=== PATIENT | female | born 1980 | race Caucasian/White ===

== ENCOUNTER → 2021-11-03 14:39 | Outpatient (BNVA) | payer MEDICAID, SELFPAY | PROVIDERS: PCP Internal Medicine; Visit Provider Physician Assistant Surgical | DX: E66.01 Morbid (severe) obesity due to excess calories (principal); Z11.0 Encounter for screening for intestinal infectious diseases; Z68.42 Body mass index [BMI] 45.0-49.9, adult | CPT/HCPCS: 83013; 99202; 99211 ==

== ENCOUNTER 2021-11-03 16:08 | Outpatient (REF) | payer MEDICAID, SELFPAY ==
[2021-11-04 11:36] LABS: H Pylori Breath Test Negative (Negative)
== END 2021-11-03 16:09 | disposition home or self-care (01) ==
LOC: HO.LNP 16:08
PROVIDERS: Visit Provider Physician Assistant Surgical
DX: E66.01 Morbid (severe) obesity due to excess calories (principal)
CPT/HCPCS: 83013

== ENCOUNTER 2021-11-06 06:07 | Outpatient (REF) | payer MEDICAID, SELFPAY ==
[2021-11-06 06:32] LABS: MANUAL DIFF FLAG NO
[2021-11-06 08:04] LABS: Basophils Percent Auto 0.2 % (0-2); Eosinophils Absolute Auto 0.1 X10*3/uL (0.0-0.4); Eosinophils Percent Auto 1.3 % (0-4); Hematocrit 42.8 % (37.0-47.0); Hemoglobin 14.9 g/dl (12.0-16.0); Imm Gran Abs Auto 0.03 X10*3/uL (0.00-0.03); Imm Gran Pct Auto 0.4 % (0.0-0.4); Lymphocytes Absolute Auto 2.6 X10*3/uL (1.2-4.9); Lymphocytes Percent Auto 29.8 % (20-40); Mean Corpuscular HGB Conc 34.8 g/dl (31.0-35.0); Mean Corpuscular Hemoglobin 29.7 pg (27.0-33.0); Mean Corpuscular Volume 85.4 fL (80.0-98.0); Mean Platelet Volume 11.6 fL (9.4-12.3); Monocytes Absolute Auto 0.6 X10*3/uL (0.1-1.2); Monocytes Percent Auto 6.4 % (2-11); Neutrophils Absolute Auto 5.3 x10*3/uL (2.0-8.3); Neutrophils Percent Auto 61.9 % (45-73); Platelet Count 203 X10*3/uL (160-400); Red Blood Count 5.01 X10*6/uL (4.20-5.50); Red Cell Distribution Width 12.6 % (11.0-16.0); White Blood Count 8.6 X10*3/uL (4.8-10.8)
[2021-11-06 08:12] LABS: Estimated Average Glucose 91 mg/dL; Hemoglobin A1c % 4.8 %
[2021-11-06 08:47] LABS: Alanine Aminotransferase 16 U/L (0-31); Albumin Level 4.2 g/dL (3.5-5.0); Alkaline Phosphatase 61 U/L (39-117); Anion Gap 12 (12-20); Aspartate Amino Transferase 16 U/L (5-31); Bilirubin Total 0.7 mg/dL (0.0-1.0); Blood Urea Nitrogen 20 mg/dL (9-16); C Reactive Protein 0.45 mg/dL (< or = 0.50); Calcium 9.2 mg/dL (8.4-10.2); Carbon Dioxide 25 mmol/L (22-29); Chloride 103 mmol/L (96-108); Cholesterol 182 mg/dL; Estimated Glomerular Filt Rate > 60; Glucose Random 94 mg/dL (60-115); HDL Cholesterol 32 mg/dL; Iron 57 mcg/dL (30-160); LDL Cholesterol Calculated 121 mg/dl; Percent Iron Saturation 18 % (15-50); Potassium 3.9 mmol/L (3.3-5.1); Sodium 136 mmol/L (135-145); Total Iron Binding Capacity 323 mcg/dL (228-428); Total Protein 7.3 g/dL (6.5-8.0); Triglycerides 149 mg/dL; Unsaturated Iron Binding 266 ug/dL
[2021-11-06 08:53] LABS: Ferritin 128 ng/mL (10-250); TSH reflex Free T4 1.37 uIU/mL (0.32-4.0); Vitamin D 25-OH Total 21.2 ng/mL (>30)
[2021-11-06 09:24] LABS: Insulin 12 uU/mL (2-29)
[2021-11-06 11:18] LABS: Folate 12.9 ng/mL (> or = 4.0); Vitamin B12 292 pg/mL (200-900)
[2021-11-07 12:11] LABS: Calcium (PTHI) 9.4 mg/dL (8.6-10.2); PTHI 70 pg/mL (16-77)
[2021-11-10 23:16] LABS: Zinc 85 mcg/dL (60-130)
[2021-11-11 15:56] LABS: Vitamin B1 8 nmol/L (8-30)
[2021-11-11 17:02] LABS: Vitamin A 42 mcg/dL (38-98)
== END 2021-11-06 06:08 | disposition home or self-care (01) ==
LOC: HO.LAB 06:07
PROVIDERS: PCP Internal Medicine; Visit Provider Physician Assistant Surgical
DX: E66.01 Morbid (severe) obesity due to excess calories (principal)
CPT/HCPCS: 36415; 80053; 80061; 82306; 82607; 82728; 82746; 83036; 83525; 83540; 83970; 84425; 84443; 84590; 84630; 85025; 86140

== ENCOUNTER 2021-11-17 06:22 | Outpatient (REF) | payer MEDICAID, SELFPAY ==
--- NOTE | ~2021-11-17 | XR_ITS ---
EXAMINATION: XR CHEST CLINICAL INFORMATION: Morbid obesity due to excess calories COMPARISON: None TECHNIQUE: 2 views of the chest were obtained. FINDINGS: No significant abnormality is noted involving the heart, lungs, mediastinum, bony thorax or soft tissues. XR/XR chest 2V IMPRESSION: No acute pulmonary process. Essentially unremarkable examination.
--- NOTE | 2021-11-17 06:35 | ECG_ITS ---
Test Reason : e66.01 Blood Pressure : / mmHG Vent. Rate : 076 BPM Atrial Rate : 076 BPM P-R Int : 138 ms QRS Dur : 088 ms QT Int : 360 ms P-R-T Axes : 057 079 040 degrees QTc Int : 405 ms Normal sinus rhythm Normal ECG No previous ECGs available Referred By: Elijah Gomez Electronically Signed By:Raman Norman
== END 2021-11-17 06:23 | disposition home or self-care (01) ==
LOC: HO.XRAY 06:22
PROVIDERS: PCP Internal Medicine; Visit Provider Physician Assistant Surgical
DX: E66.01 Morbid (severe) obesity due to excess calories (principal)
CPT/HCPCS: 71046; 93005

== ENCOUNTER → 2021-12-18 15:00 | Outpatient (BNVA) | payer OTHER, SELFPAY | PROVIDERS: Referring Provider Physician Assistant Surgical; Visit Provider Counselor Mental Health | DX: F32.5 Major depressive disorder, single episode, in full remission (principal); E66.01 Morbid (severe) obesity due to excess calories | CPT/HCPCS: 90791 ==

== ENCOUNTER → 2021-12-26 09:21 | Outpatient (BNVA) | payer MEDICAID, SELFPAY | PROVIDERS: PCP Internal Medicine; Referring Provider Physician Assistant Surgical; Visit Provider Dietitian, Registered | DX: E66.01 Morbid (severe) obesity due to excess calories (principal) | CPT/HCPCS: 97803 ==

== ENCOUNTER 2022-01-03 07:42 | Outpatient (REF) | payer MEDICAID, SELFPAY ==
--- NOTE | ~2022-01-03 | US_ITS ---
EXAMINATION: US COMPLETE ABDOMEN WITH LIVER ELASTOGRAPHY CLINICAL INFORMATION: Obesity COMPARISON: None. TECHNIQUE: Real-time imaging of the abdominal viscera. Noninvasive ultrasound liver fibrosis assessment is performed using Theresa ElastPQ point quantification shear wave elastography (2D-SWE) with a C5-2 MHz transducer. Multiple elastography samples are obtained. FINDINGS: PANCREAS: Normal. ABDOMINAL AORTA: The proximal, middle, and distal aortic segments are normal in caliber. INFERIOR VENA CAVA: Visualized portions are normal. LIVER: Normal. The liver demonstrates normal size, contour and echogenicity. No focal lesion or intrahepatic biliary duct dilatation. The right lobe measures 18 cm in length. The left lobe measures 7 cm in length. Portal flow is normal/hepatopedal Shear wave liver elastography median stiffness is 1.4 m/s (reference: normal median stiffness is 1.3 m/s or less). IQR/median stiffness to assess sampling precision is 0.2 (reference: good quality data set is IQR/median stiffness of 0.15 or less). GALLBLADDER: Normal. The gallbladder is physiologically distended without evidence of stones, sludge, polyps, wall thickening or pericholecystic fluid. COMMON BILE DUCT: Normal in caliber measuring 0.3 cm in diameter. RIGHT KIDNEY: Normal. No hydronephrosis. No renal calculi or focal parenchymal lesions. The kidney measures 12 cm in maximum dimension. LEFT KIDNEY: Normal. No hydronephrosis. No renal calculi or focal parenchymal lesions. The kidney measures 12 cm in maximum dimension. SPLEEN: Normal. The spleen measures 14 cm in maximum dimension. FREE FLUID: None. US/US abdomen comp w elastography IMPRESSION: 1. Impression: Slightly enlarged spleen. 2. Liver elastography: Limited due to sampling error. REFERENCE: Society of Radiologists in Ultrasound Liver Stiffness Thresholds (2020): LIVER STIFFNESS THRESHOLDS: *Liver Stiffness equal or less than 1.3 m/s: High probability of being normal. *Liver Stiffness less than 1.7 m/s: In the absence of other known clinical signs, rules out compensated advanced chronic liver disease. *Liver Stiffness 1.7-2.1 m/s: Suggestive of compensated advanced chronic liver disease but need further test for confirmation. *Liver Stiffness over 2.1 m/s: Rules in compensated advanced chronic liver disease. *Liver Stiffness over 2.4 m/s: Suggestive of clinically significant portal hypertension. QUALITY OF DATA SET: *IQR/Median value equal or less than 0.15 implies a quality data set. *IQR/Median value over 0.15 implies a poor quality data set. SIGNIFICANT CHANGE FROM PRIOR EXAM: Significant change if liver stiffness measurement is 10% or greater from prior exam. OTHER CONSIDERATIONS: The stage of liver fibrosis may be overestimated in the setting of acute hepatitis, liver inflammation, elevated liver function tests, hepatic vascular congestion, obstructive cholestasis, non-fasting state, and infiltrative diseases such as amyloidosis and lymphoma. In some patients with NAFLD, the liver stiffness thresholds for compensated advanced chronic liver disease may be lower. In causes other than viral hepatitis and NAFLD, liver stiffness thresholds are not well established.
--- NOTE | ~2022-01-03 | FL_ITS ---
EXAMINATION: XR FLUOROSCOPY UPPER GI WITH AIR CLINICAL INFORMATION: Morbid to severe obesity due to excess calories. COMPARISON: None TECHNIQUE: Routine upper GI air-contrast study was performed. FINDINGS: Following oral administration of thick barium and effervescent granules, there is normal propagation of bolus from the oral cavity through the pharynx, esophagus into stomach without any evidence of obstruction, narrowing or stricture. On placing patient supine and prone lying, there is a large gastroesophageal reflux into the upper esophagus with a small sliding hiatal hernia. There is flocculation of barium throughout the stomach suggestive of gastric hyperacidity. Visualized duodenal bulb and the C-loop is normal in course and caliber. No mucosal abnormality is seen involving the stomach or the duodenum. FLUOROSCOPY TIME: 2.3 minutes DOSE AREA PRODUCT: 178 uGy-m2 (microgray-meter squared) FL/FL upper GI w air IMPRESSION: Large gastroesophageal reflux with a small sliding hiatal hernia. Suspect gastric hyperacidity but no gastric erosion or ulceration suspected.
== END 2022-01-03 07:43 | disposition home or self-care (01) ==
LOC: HO.US 07:42
PROVIDERS: Visit Provider Physician Assistant Surgical
DX: E66.01 Morbid (severe) obesity due to excess calories (principal)
CPT/HCPCS: 74246; 76705; 76981

== ENCOUNTER 2022-03-01 06:16 | Inpatient (IN) | payer MEDICAID, SELFPAY ==
[2022-02-19 09:21] VITALS: BMI 41.8
[2022-02-20 06:06] LABS: MANUAL DIFF FLAG NO
[2022-02-20 07:27] LABS: Basophils Percent Auto 0.6 % (0-2); Eosinophils Absolute Auto 0.1 X10*3/uL (0.0-0.4); Eosinophils Percent Auto 1.3 % (0-4); Hematocrit 41.1 % (37.0-47.0); Imm Gran Abs Auto 0.03 X10*3/uL (0.00-0.03); Imm Gran Pct Auto 0.4 % (0.0-0.4); Lymphocytes Absolute Auto 2.3 X10*3/uL (1.2-4.9); Lymphocytes Percent Auto 32.9 % (20-40); Mean Corpuscular HGB Conc 34.1 g/dl (31.0-35.0); Mean Corpuscular Hemoglobin 29.2 pg (27.0-33.0); Mean Corpuscular Volume 85.6 fL (80.0-98.0); Mean Platelet Volume 11.3 fL (9.4-12.3); Monocytes Absolute Auto 0.4 X10*3/uL (0.1-1.2); Neutrophils Percent Auto 58.8 % (45-73); Platelet Count 170 X10*3/uL (160-400); Red Cell Distribution Width 13.1 % (11.0-16.0); White Blood Count 6.8 X10*3/uL (4.8-10.8)
[2022-02-20 07:42] LABS: INTERNATIONAL NORM RATIO 1.1 (0.9-1.1)
[2022-02-20 07:45] LABS: Estimated Average Glucose 91 mg/dL; Hemoglobin A1c % 4.8 %; Partial Thromboplastin Time 35.5 SEC (26.0-36.4)
[2022-02-20 07:50] LABS: Alanine Aminotransferase 11 U/L (0-31); Albumin Level 3.8 g/dL (3.5-5.0); Alkaline Phosphatase 46 U/L (39-117); Anion Gap 13 (12-20); Aspartate Amino Transferase 13 U/L (5-31); Bilirubin Total 0.8 mg/dL (0.0-1.0); Blood Urea Nitrogen 13 mg/dL (9-16); C Reactive Protein 0.35 mg/dL (< or = 0.50); Carbon Dioxide 24 mmol/L (22-29); Chloride 106 mmol/L (96-108); Cholesterol 160 mg/dL; Creatinine Clr Calc Pharmacy 126.8; Estimated Glomerular Filt Rate > 60; Glucose Random 85 mg/dL (60-115); HDL Cholesterol 31 mg/dL; LDL Cholesterol Calculated 116 mg/dl; Potassium 4.1 mmol/L (3.3-5.1); Sodium 139 mmol/L (135-145); Total Protein 6.6 g/dL (6.5-8.0); Triglycerides 68 mg/dL
[2022-02-20 08:10] LABS: Insulin 5 uU/mL (2-29); TSH reflex Free T4 0.41 uIU/mL (0.32-4.0)
--- NOTE | 2022-02-26 17:44 | P.HPSUR_ITS ---
Pre-Procedural Eval Section A Date of Service: 02/26/22 The patient is an INPATIENT: Yes The History & Physical has been completed within 30 days and I have reviewed it.: Yes Section B Chief Complaint: Morbid (severe) obesity due to excess calories Relevant Family History (Specify if Yes): No Relevant Social History: None Present Medications: None Medical History: No relevant PMH History of Previous Operations: No relevant previous surgery Allergies: Allergies Allergy/AdvReac Type Severity Reaction Status Date / Time No Known Allergies Allergy Verified 02/16/22 11:46 Review of Systems Sugical H&P ROS: Negative: Constitution, Cardiovascular, Respiratory, Neurological, Psychiatric, Hem-Onc, Allergic/Immunologic, Gastrointestinal, Genitourinary, Musculoskeletal, Integumentary, Endocrine and Eyes/Ears/No se/Throat Exam Surgical H&P Exam: Normal: HEENT, Normal: Heart, Normal: Lungs, Normal: Extremities, Normal: Abdomen, Normal: Skin and Normal: Neurological Plan Diagnosis/Plan: Unchanged I have reviewed the history and physical and performed a pertinent physical examination on my patient. No changes have occurred unless specified.
--- NOTE | 2022-02-28 10:19 | P.CONAN_ITS ---
Documented by User: Micki Lemus NP 02/28/22 10:20 HPI - Anesthesia Eval Consult details Narrative: 41yo F for Gastrectomy Sleeve,EGD,possible diaphragmatic hernia,possible ventral hernia,possible open PMFSH Active Problems Active Problems: All Active Problems (Updated 02/19/22 @ 09:20 by Desiree De Souza, CHRISTINE) Morbid obesity (Acute) Hypothyroid (Acute) Major depressive disorder in full remission (Acute) Vitamin B12 deficiency (Acute) Past Medical History Medical History Hiatal hernia History of COVID-19 History of depression Hypothyroid Mild acid reflux PONV (postoperative nausea and vomiting) Family History Family History Mother No problems noted. Father Colon cancer Sister No problems noted. Sister No problems noted. Sister No problems noted. Brother No problems noted. Brother No problems noted. Brother No problems noted. Son No problems noted. Son No problems noted. Son No problems noted. Sister No problems noted. Sister No problems noted. Surgical History Surgical History Hx of arthroscopy of right knee Hx of tonsillectomy Hx of dilation and curettage Hx of oral surgery Hx of hysterectomy Hx of colonoscopy History of Problems with Anesthesia: Yes (PONV) Social History Are you a primary manager respiratory care to a significant other at home: No Do you presently have visiting nurse or other home services: No Alcohol intake: never Patient Tobacco Use Status: Never used Tobacco Meds Allergies Allergy/AdvReac Type Severity Reaction Status Date / Time No Known Allergies Allergy Verified 12/10/22 09:02 Home Medications Medication Instructions Recorded Confirmed Last Taken Type womens one a day MVI PO 12/10/22 02/28/23 Unknown History Exam Exam Date and Time: February 28, 2022 1019 Height,Weight and Vital Signs: Height 5 ft 4 in Weight 110.677 kg Pertinent Lab Results Pertinent Lab Results: Laboratory Tests 02/20/22 02/20/22 02/20/22 06:04 06:04 06:04 WBC 6.8 RBC 4.80 Hgb 14.0 Hct 41.1 MCV 85.6 MCH 29.2 MCHC 34.1 RDW 13.1 Plt Count 170 MPV 11.3 Immature Gran % (Auto) 0.4 Neut % (Auto) 58.8 Lymph % (Auto) 32.9 [place] % (Auto) 6.0 Eos % (Auto) 1.3 Baso % (Auto) 0.6 Lymph # (Auto) 2.3 [place] # (Auto) 0.4 Eos # (Auto) 0.1 Baso # (Auto) 0.0 Abs Immat Gran (auto) 0.03 Absolute Neuts (auto) 4.0 Absolute Nucleated RBC 0.000 Nucleated RBC % (auto) 0.0 PT 13.0 INR 1.1 APTT 35.5 Sodium 139 Potassium 4.1 Chloride 106 Carbon Dioxide 24 Anion Gap 13 BUN 13 Creatinine 0.71 Estim Creat Clear Calc 126.8 Estimated GFR > 60 Random Glucose 85 Estimat Average Glucose Hemoglobin A1c % Insulin Level 5 Calcium 9.0 Total Bilirubin 0.8 AST 13 ALT 11 Alkaline Phosphatase 46 D C-Reactive Protein 0.35 Total Protein 6.6 Albumin 3.8 Triglycerides 68 Cholesterol 160 LDL Cholesterol, Calc 116 HDL Cholesterol 31 TSH 0.41 Blood Type Antibody Screen 02/20/22 02/20/22 06:04 06:04 WBC RBC Hgb Hct MCV MCH MCHC RDW Plt Count MPV Immature Gran % (Auto) Neut % (Auto) Lymph % (Auto) [place] % (Auto) Eos % (Auto) Baso % (Auto) Lymph # (Auto) [place] # (Auto) Eos # (Auto) Baso # (Auto) Abs Immat Gran (auto) Absolute Neuts (auto) Absolute Nucleated RBC Nucleated RBC % (auto) PT INR APTT Sodium Potassium Chloride Carbon Dioxide Anion Gap BUN Creatinine Estim Creat Clear Calc Estimated GFR Random Glucose Estimat Average Glucose 91 Hemoglobin A1c % 4.8 Insulin Level Calcium Total Bilirubin AST ALT Alkaline Phosphatase C-Reactive Protein Total Protein Albumin Triglycerides Cholesterol LDL Cholesterol, Calc HDL Cholesterol TSH Blood Type A Negative Antibody Screen NEGATIVE Narrative Narrative: EKG 10/2021 Vent. Rate : 076 BPM ? ? Atrial Rate : 076 BPM ?? P-R Int : 138 ms? QRS Dur : 088 ms ? ? QT Int : 360 ms ? ? ? P-R-T Axes : 057 079 040 degrees ?? QTc Int : 405 ms ? Normal sinus rhythm Normal ECG No previous ECGs available Assessment and Plan Assessment Anesthesia Assessment: Chart Reviewed Final Anesthetic Review History of Problems with Anesthesia: Yes (PONV) Documented by User: John Junior MD 03/21/23 23:34 [facility] Past Medical History Medical History Hiatal hernia History of COVID-19 History of depression Hypothyroid Mild acid reflux PONV (postoperative nausea and vomiting) Functional capacity: independent ambulation Family History Family History Mother No problems noted. Father Colon cancer Sister No problems noted. Sister No problems noted. Sister No problems noted. Brother No problems noted. Brother No problems noted. Brother No problems noted. Son No problems noted. Son No problems noted. Son No problems noted. Sister No problems noted. Sister No problems noted. Family history of problems with anesthesia: No Surgical History Surgical History Hx of arthroscopy of right knee Hx of tonsillectomy Hx of dilation and curettage Hx of oral surgery Hx of hysterectomy Hx of colonoscopy Social History Are you a primary manager respiratory care to a significant other at home: No Do you presently have visiting nurse or other home services: No Alcohol intake: never Patient Tobacco Use Status: Never used Tobacco Meds Allergies Allergy/AdvReac Type Severity Reaction Status Date / Time No Known Allergies Allergy Verified 12/10/22 09:02 Home Medications Medication Instructions Recorded Confirmed Last Taken Type womens one a day MVI PO 12/10/22 02/28/23 Unknown History Exam Airway Mallampati Class: III Loose/Missing/Broken Teeth: Yes (Fillings ) Assessment and Plan Assessment Anesthesia Assessment: Anesthesia Plan Discussed Final Anesthetic Review Family History of Problems with Anesthesia: No NPO: Yes ASA Class: III Final Preanesthetic Review: Meds/Allgs Chart Reviewed, Consent Obtained/Reviewed and Anes Risks/Benef Reviewed Patient Risk: Intermediate Procedure Risk: Intermediate Anesthetic Plan Anesthetic Plan: GA and Agree w/ Assess. and Plan Disposition: Standard PACU
[2022-02-28 12:32] LABS: COVID-19 Test Negative (Negative)
[2022-03-01] VITALS (10 sets, daily range): BP systolic 120–137; BP diastolic 64–81; PULSE 59–87; RESP 15–18; TEMP 36.1–36.9; O2SAT 96–99
[2022-03-01] MEDS: Lactated Ringers 1,000 ML 999 ML IV (06:40)
[2022-03-01] MEDS: Scopolamine 1.5 MG PATCH.TD.3 TRANSDERMA (06:40)
--- NOTE | 2022-03-01 07:30 | PC.NURSE ---
Verified with Dr. Bolden to disregard active surgical order for Lap Kathie. This order entered by him in error.
--- NOTE | 2022-03-01 07:49 | P.BOP_ITS ---
Brief Operative Note Date of Service: 03/01/22 Pre-op diagnosis: Morbid obesity and comorbidities (see below) Post-op diagnosis: same (& congenital adhesions) Procedure: INITIAL PATIENT BMI ON PRESENTATION AT OUR OFFICE: 48.5 kg/m2 LAST BMI BEFORE SURGERY: 42.6 kg/m2 COMORBIDITIES: hypothyroidism, DJD, GERD, diaphragmatic hernia ?The patient presented to the Weight Management Program with significant obesity that was negatively impacting the patient's comorbidities as listed above.? The program is a phased program with a special focus on preoperative medical weight management to promote substantial weight loss and prepare the patients for the second phase of the program: bariatric surgery. The patient participated in an intensive weekly lifestyle ?intervention and exercise program during which the patient ?has lost between the initial office visit and the last preoperative visit 38.4lbs, or 13.6% of initial actual body weight. It was deemed appropriate for the patient to now have bariatric surgery. In light of the current Covid-19 pandemic and the well documented strong association of obesity and increased risk of worse outcomes if infected with Covid-19 (REFERENCES: https://pubmed.ncbi.nlm.nih.gov/44184715/ ,? https://pubmed.ncbi.nlm.nih.gov/84204775/ ), any delay in undergoing bariatric surgery may lead to the patient's worsening health condition and increased?risk of more severe Covid-19 disease if infected. In addition a recent?study from [facility] published in [facility] [employer] on 04/24/2021 ([email or web address]/C:/[email or web address]) found that, among patients with obesity, substantial weight loss achieved with surgery was associated with improved outcomes of COVID-19 infection. The findings suggest that obesity can be a modifiable risk factor for the severity of COVID-19 infection. In addition, the patient met the BMI-criteria for bariatric surgery based on the BMI on initial presentation. The patient should not be penalized for achieving such weight loss because ?it is not sustainable long-term without surgical intervention and it was achieved in preparation for bariatric surgery ?under my direction and based on my published research ([email or web address]).[email or web address] and? https://www.soard.org/article/[email or web address](39)84451-X/pdf ) ?that a 10% preope rative weight loss improves long-term weight loss after surgery and reduces perioperative complications.? Insurance carriers such as [facility] have endorsed my recommendations ?and have included in their policies criteria to include a 10% preoperative weight loss requirement. PROCEDURE: Esophago-gastroscopy, laparoscopic repair of incarcerated diaphragmatic hernia, laparoscopic lysis of adhesions, laparoscopic sleeve gastrectomy and laparoscopic gastropexy INDICATIONS: This is a 41 year-old female who was electively scheduled for laparoscopic, possibly open sleeve gastrectomy. The risks and complications of the procedure were discussed with the patient in advance, particularly the possibility of ; pulmonary embolism; staple line leak; bleeding; GERD; cardiac, pulmonary, or renal complications; as well as long-term problems such as insufficient weight loss, vitamin deficiency, strictures, or ulcers. The patient understood all the risks, and was in agreement to proceed with surgery. DESCRIPTION OF PROCEDURE: After informed consent was obtained from the patient, the patient was given preoperative antibiotics, and was transferred to the operating room. After successful induction of general anesthesia, pneumatic compression devices were placed on both lower extremities. An upper endoscopy was performed next. The oropharynx and esophagus appeared to be within normal limits. There was a diaphragmatic hernia present of moderate size consistent with the findings of the preoperative upper GI. The stomach was entered. Then after all fluid and air were suctioned and the stomach was fully decompressed, the scope was withdrawn and secured in the mid esophagus. The patient was then prepped and draped in the usual sterile manner, and abdominal access was established at the right upper quadrant with the Feroz technique. A 12 mm blunt port was inserted, and the abdomen was insufflated with CO2 to a pressure of 15 mmHg. Under direct visualization, additional ports were placed, specifically two 5 mm Versi-step ports to the left upper quadrant, and a 5 mm Versi-Step port to the right upper quadrant. 1% lidocaine plain was used to infiltrate all port sites as well as all fascia defects. Using the EndoClose suture passer device, I placed a #1 Polysorb tie across the falciform ligament in order to retract it up against the abdominal wall and prevent injury of the ligament with our instruments during the procedure. Following that, the patient was placed in a steep reverse Trendelenburg position. An additional 5 mm port was placed to the right flank for the Mediflex retractor that was used to retract the left lobe of the liver. The gastro-esophageal fat pad was opened with the ultrasonic device (Thunderbeat, Olympus) and the anterior esophagus and hiatus were exposed. The angle of His was opened with the ultrasonic device the fundus of the stomach from any diaphragmatic and splenic attachments. I then opened the gastrocolic ligament between the transverse colon and the greater curvature of the stomach with the ultrasonic device to enter the lesser sac and facilitate the ligation of the short gastric vessels. I started at a mid-point along the greater curvature and using the Thunderbeat, all short gastric vessels were divided all the way to the angle of His until the left carina was completely dissected at its entirety. I then divided the gastro-colic ligament distally to a distance of about 3-4 cm proximal to the pylorus. There were extensive congenital adhesions between the pancreas and posterior gastric wall. Those were lysed completely with the ultrasonic device. Adhesiolysis took approximately 45 min to complete. There was an obvious significant-sized hiatal hernia. I continued dissecting along the hiatus toward the left carina and the angle of His. I fully mobilized the fat pad that was incarcerated in the hernia. I then continued by dissecting even further into the posterior retro-esophageal space all the way to the angle of His. I continued to mobilize the esophagus into the mediastinum circumferentially. Both vagal nerves were seen and preserved. At that point, I was able to have at least 3 to 5 cm of esophagus into the abdomen.? After I completely mobilized the esophagus from both the left and right carina and I had a good mobilization of the esophagus circumferentially, I closed the hernia defect with four interrupted #0 Surgidac sutures using the Endo Stitch device, two of which was placed posterior and two of which anterior to the esophagus. Dissection was very difficult due to three large vessels near the hiatus, a replaced left hepatic artery to the right carina and two vessels near the left carina. Total operative time was 3 hours.? The stomach was then divided transversely with one Endo SHRAVAN-45 purple, three SHRAVAN-45 orange loads and three SHRAVAN-60 articulating orange loads using the AEON stapler and loads. Every effort was made that the gastric sleeve had a tubular shape and an even caliber throughout. Once the sleeve resection was completed, the staple line of the gastric sleeve was reinforced with Hemoclips. The resected stomach was retrieved without difficulty from the Feroz port. A gastropexy was then performed in order to prevent postoperative GERD and partial gastric volvulus. Several interrupted 2.0 Surgidac sutures were placed between the sleeve's staple line and the previously divided greater omentum and gastro-colic ligament using the Endo-Stitch device. ?An upper endoscopy was performed. There was no narrowing at the GE junction. The scope was easily advanced all the way to the pylorus which was clearly visualized. There was no narrowing anywhere and the sleeve's caliber was even throughout. The sleeve's staple line was inspected and there was no evidence of ischemia, bleeding or dehiscence. At that point the gastroscope was withdrawn from the patient?s mouth while we were decompressing the bowel and the stomach from any remaining air. I looked into the lesser sac to see how the sleeve was situating and it was situating well. There was no bleeding from the staple line, spleen, or short gastric vessels. The Mediflex retractor was removed, and the undersurface of the liver was inspected and there was no bleeding. The patient was placed in supine position. I closed the fascial defect of the 12 mm port site with a figure of eight #1 Polysorb suture. Then 30cc of Ropivacaine plain with 10 mg of Dexamethasone were used to infiltrate the fascial closure as well as all skin incisions. A total of 7ml of Zynrelef was applied in the Feroz wound. At this point, the abdomen was deflated, all ports were removed under direct vision, and no bleeding was noted from any of the port sites. The skin incisions were irrigated with saline and were closed with 4-0 absorbable monofilament sutures. Steri-Strips and OpSites were used to cover all incisions. The patient was extubated and was transferred in stable condition to the recovery room for further care. I was present and performed all peters parts of the procedure. Mr Gomez was the operations manager assistant. There were no residents to assist with this case. Jermaine Lynn MD, PhD, FACS Surgeon: Keegan Lynn MD Anesthesia: GETA, local and other (TAP block and 7ml Zynrelef) Was an Animal Health Technician used for this Procedure?: No Animal Health Technician: Elijah Gomez Estimated blood loss (mL): 10 IV fluids (mL): 3,000 Urine output (mL): 0 (No Gao to record output) Pathology: other (Stomach) Condition: stable Disposition: PACU
[2022-03-01] MEDS: ceFAZolin Sodium/Dextrose,Iso 2 GM/50 ML PIGGYBACK IV ×2 (07:52→14:16)
--- NOTE | 2022-03-01 07:52 | PM.PNGS ---
Subjective Subjective Date of Service: 03/02/22 Interval history: Patient has mild incisional pain, but was able to ambulate and use the incentive spirometer. She is tolerating phase 1 bariatric diet Physical Exam Vital Signs: Vital Signs: Last Vital Signs Temp 97.4 F 03/01/22 06:26 Pulse 68 03/01/22 06:26 Resp 16 03/01/22 06:26 BP 124/65 03/01/22 06:26 Pulse Ox 97 03/01/22 06:26 O2 Del Method 03/01/22 06:26 BMI result Body Mass Index 41.8 GI: Inspection: Yes normal to inspection, Yes incision (clean, dry and intact) and Yes obesity Palpation (GI): Soft to palpation Extrem: Right lower extremity: normal to inspection (no calf tenderness) Left lower extremity: normal to inspection (no calf tenderness) Objective Data Active Medications Lactated Ringer's (Lr) 1,000 mls @ 999 mls/hr IV .Q1H1M SAVANAH Stop: 03/01/22 08:30 Last Admin: 03/01/22 06:40 Dose: 999 mls/hr Documented By: JOCELIN Lactated Ringer's (Lr) 1,000 mls @ 100 mls/hr IVCONT .Q10H [facility] Labs CBC & Chem 7: 03/02/22 06:03 03/02/22 06:03 Labs: Laboratory Results - last 24 hr 02/28/22 12:05 COVID-19 (JIAN) Negative COVID-19 Clin Com See Note Procedures Date of Service Date of Service: 03/02/22 Progress Note: A&P Assessment and plan (1) Morbid obesity: Status: Acute Assessment and Plan: s/p laparoscopic sleeve gastrectomy, lysis of adhesions repair of diaphragmatic hernia, and gastropexy Doing well Check am labs. If OK, will discharge home? (2) Hypothyroid: Status: Acute (3) GERD (gastroesophageal reflux disease): Status: Acute (4) Diaphragmatic hernia: Status: Acute (5) DJD (degenerative joint disease): Status: Acute (6) Status post repair of paraesophageal diaphragmatic hernia: Status: Acute (7) S/P laparoscopic sleeve gastrectomy: Status: Acute (8) Congenital intra-abdominal adhesions: Status: Acute Time Spent With Patient Time: Total time spent is greater than 50% in coordination of care (as documented) at patient's floor/unit and/or counseling patient: Quality Stroke Does the patient have a stroke diagnosis?: No VTE Prior VTE?: No VTE Risk Level:: Surgical - moderate VTE Device Contraindication: N/A - Device Ordered VTE Drug Contraindication: Treatment Not Indicated
--- NOTE | 2022-03-01 11:18 | P.DS_ITS ---
DS: Providers Provider Date of Service: 03/02/22 Date of admission: 03/01/22 06:16 Primary care physician: Ashley Carrasco MD DS: Diagnosis Discharge Diagnosis (1) Morbid obesity: Status: Acute (2) Hypothyroid: Status: Acute (3) GERD (gastroesophageal reflux disease): Status: Acute (4) Diaphragmatic hernia: Status: Acute (5) DJD (degenerative joint disease): Status: Acute DS: Summary Hospital Course Hospital Course: ADMITTING DIAGNOSIS: morbid obesity, hypothyroid ? DISCHARGE DIAGNOSIS: same, s/p laparoscopic sleeve gastrectomy and repair diaphragmatic hernia ? PAST SURGICAL HISTORY: tonsillectomy, hysterectomy ? PROCEDURE: upper endoscopy, laparoscopic sleeve gastrectomy and repair of diaphragmatic hernia hernia ? DISCHARGE SUMMARY: ? History of Present Illness: ? The patient is a?41 year-old woman with a BMI of?48.4 kg/m2 and associated co- morbidities as described above. The patient had extensive work-up,lost?38.4 lbs preoperatively and was electively scheduled for laparoscopic, possible open sleeve gastrectomy and gastropexy. Risks and complications of the surgery were discussed with the patient in advance, particularly the possibility of , pulmonary embolism, anastomotic leak, bleeding, bowel injury, GERD, cardiac, renal or pulmonary complications. The patient understood all the risks and was in agreement with the surgical plan. ? Hospital Course: ? The patient underwent an uneventful laparoscopic sleeve gastrectomy with gastropexy and repair of diaphragmatic hernia on the day of admission. Postoperatively, the patient was transferred to the surgical floor. The patient received IV Acetaminophen and IV dilaudid for pain control. Patient was started on bariatric phase 1 diet POD #0. On postoperative day one, the patient was feeling well without nausea, vomiting, fevers, or tachycardia. The patient had some mild incisional pain and the abdomen was soft. ? On the morning of postoperative day one, the patient was continued on 1 ounce of water or ice every half hour. During the day, the patient did fairly well, having some incisional pain, but able to ambulate adequately and to tolerate liquids well. ? Since the patient is doing well, we decided that the patient was ready to be discharged. The patient was given instructions to follow-up with me next week and to call my office for any fever over 101, persistent abdominal pain, nausea, vomiting, GERD, symptoms of DVT such as calf tenderness, or leg swelling, or pulmonary embolism such as chest pain or shortness of breath. The patient was also instructed to drink 40-60 ounces of liquids per day using the 1-ounce cups. The patient had been given prescriptions for Tylenol for pain, Zofran prn for nausea, and pantoprazole and carafate previously. The patient was encouraged to ambulate and use the incentive spirometer. The patient was allowed to shower, but no baths, and encouraged to stay active at home. All of these instructions were given to the patient personally. All questions were answered and the patient understood all instructions, the instructions were also given to the patient in print. Time Spent with Patient Time attestation: Total time spent providing and/or coordinating discharge services: Discharge coordination time: Less than 30 minutes Quality: Safe Use of Opioids Does Pt have an Active Cancer Diagnosis on the Problem List?: No Quality: Stroke Does the patient have a stroke diagnosis?: No Physical Exam Vital Signs: Vital Signs: Last Vital Signs Temp 97.4 F 03/01/22 06:26 Pulse 68 03/01/22 06:26 Resp 16 03/01/22 06:26 BP 124/65 03/01/22 06:26 Pulse Ox 97 03/01/22 06:26 O2 Del Method 03/01/22 06:26 BMI result Body Mass Index 41.8 DS: Data Data Completed and Pending Pending studies at discharge: Pending at discharge 03/01/22 10:26 Surgical [PTH] Routine Labs on day of discharge: Laboratory Results - last 24 hr 02/28/22 12:05 COVID-19 (JIAN) Negative COVID-19 Clin Com See Note Discharge Plan Discharge Anticipated Discharge Date/Time: 03/02/22 10:00 Patient Disposition: Home, Self-Care Discharge Diagnosis: s/p laparoscopic sleeve gastrectomy and repair of diap hragmatic hernia Referrals: Ashley Carrasco MD [Primary Care Provider] - 1 Week Discharge Medications: Continued levothyroxine 137 mcg tablet 137 mcg PO DAILY pantoprazole 40 mg tablet,delayed release (DR/EC) 40 mg PO DAILY Qty: 30 2RF sucralfate 100 mg/mL suspension 10 ml PO BID Qty: 400 2RF ondansetron HCl 4 mg tablet 4 mg PO Q12H Qty: 20 0RF Discontinued cholecalciferol (vitamin D3) [Vitamin D3] 125 mcg (5,000 unit) tablet 125 mcg PO DAILY Qty: 30 2RF thiamine HCl (vitamin B1) [Vitamin B-1] 100 mg tablet 100 mg PO DAILY Qty: 30 2RF mecobalamin (vitamin B12) 1,000 mcg tablet,disintegrating 1,000 mcg sublingual DAILY Qty: 30 2RF Rx Instructions: place tablet under tongue and allow to dissolve for at least30 secs before swallowing Discharge Orders: Discharge Order (Routine); Ordered 03/02/22 Ordered By: Keegan Lynn Activity on Discharge: No heavy lifting Stand Alone Forms: Patient Portal Discharge page Care Plan Goals: weight loss Health Concerns: morbid obesity Plan of Treatment: No tub baths, sex or returning to work until discussed at first post op appointment. No exercise, alcohol, tobacco or illegal drug use. Continue to use incentive spirometer hourly while awake. Walk in home for 5- 10 minutes every 2 hours during the first week. Follow all instructions in the bariatric handbook and call with any questions.Discharge Instructions 1. Please call your doctor or come back to the emergency room should any new symptoms arise. 2. You will receive a courtesy call from [facility] 24-48 hours after discharge. 3. Activity: abstain from alcohol, practice limited stair climbing, no bending, no driving, no exercise, no illicit substances, no lifting, no sex, no tub bath, no work. 4. Diet: continue as discussed with Dr. Lynn. 5. Dressing Change/Wound Care: Your incision is covered by clear bandages and guaze underneath. If the area is tender, you may apply an ice pack for short intervals (no more than 20 minutes on, followed by at least 20 minutes off). Do not apply heat. Do not use creams, lotions, or topical antibiotics unless instructed to do so by your surgeon. These can cause infection or allergic reaction. 6. Call your doctor if: - Your temperature exceeds 101.5 F - You experience excessive pain or swelling - You have an unexpected reaction to medication - You have excessive bleeding - You experience continued vomiting/nausea - Your incision begins to separate - Your incision shows signs of infection such as increased redness, swelling, excessive pain, heat, or drainage (light blood or clear fluid is normal) 7. General instructions: No lifting greater than 5 lbs for the next 4 weeks[address] driving within 24 hours of taking narcotic pain medications. If you do not move your bowels in the next 2 days, please take milk of magnesia over the counter. Please follow the post op diet and do not advance your diet until you are seen in the office in about 2 weeks. Please walk around your home every hour or two to prevent blood clots from forming in your legs. You do not need to wake from sleeping to walk. Please sleep in a bed or couch to prevent kinking at the hips and knees. Please take your incentive spirometer (your lung adapted physical education teacher) home with you and use it for the next few days to prevent pneumonias. You may shower, no hot tubs, baths or swimming pools. Please call the office with any questions or concerns such as increasing abdominal pain, fever, chills, shortness of breath, chest pain, leg pain or swelling, or redness or drainage from your incisions. Please stay on stage 3 diet which includes sugar free clear liquids such as ice pops and jello and broth and crystal light. Avoid all carbonation. Please drink 3 protein shakes with at least 25-30 grams of protein daily or 3 of the Celebrate 4:1 shakes which can be purchased in our office. The Celebrate shakes have all of the bariatric vitamins you need if you consume these shakes. If you are drinking other protein shakes, you will need to purchase the Celebrate multivitamins and calcium that we provide in the office (they will provide all the vitamins you need). Please make sure you are consuming at least 40-60 ounces of water in addition to your 3 protein shakes daily. Do not hesitate to contact the office with any questions at . The patient's medical history has been reviewed and they are considered low risk for post op DVT and therefore DVT prophylaxis is not considered necessary. Travel after surgery was reviewed. The patient has not disclosed any travel plans during the first 30 days after surgery and they have been advised that within the first 30 days after surgery any bus, plane, train or car travel over 2 hours in duration is contraindicated due to the possibility of developing blood clots from immobility. Any travel, needs to include periods of ambulation of 10 minutes in duration every 2 hours.? The patient was instructed to discuss any plans for travel during this period with their bariatric surgeon. Assessment: stable s/p laparoscopic sleeve gastrectomy and repair of diaphragmatic hernia
[2022-03-01] MEDS: Famotidine/PF 20 MG/2 ML VIAL IVPUSH ×2 (11:30→20:47)
[2022-03-01] MEDS: Lactated Ringers 1,000 ML 125 ML IVCONT ×2 (11:35→19:25)
[2022-03-01 11:40] LABS: Hematocrit 41.8 % (37.0-47.0); Hemoglobin 14.6 g/dl (12.0-16.0)
--- NOTE | 2022-03-01 11:52 | PHA.MEDREC ---
Pharmacy Consult ? Medication Reconciliation Pharmacy has completed the medication reconciliation. Reviewed med rec done by nursing
[2022-03-01 11:53] LABS: Anion Gap 19 (12-20); Blood Urea Nitrogen 9 mg/dL (9-16); Calcium 8.9 mg/dL (8.4-10.2); Carbon Dioxide 18 mmol/L (22-29); Chloride 104 mmol/L (96-108); Creatinine Clr Calc Pharmacy 115.4; Estimated Glomerular Filt Rate > 60; Glucose Random 107 mg/dL (60-115); Potassium 3.7 mmol/L (3.3-5.1); Sodium 137 mmol/L (135-145)
[2022-03-01] MEDS: Acetaminophen 1,000 MG/100 ML PIGGYBACK 16.7 MG IV ×2 (16:29→20:17)
[2022-03-01] MEDS: ondansetron HCL 4 MG/2 ML VIAL IVPUSH (20:47)
[2022-03-02] VITALS: BP 123/59; PULSE 76; RESP 18; TEMP 36.6; O2SAT 98
[2022-03-02] MEDS: Acetaminophen 1,000 MG/100 ML PIGGYBACK 16.7 MG IV (02:22)
[2022-03-02] MEDS: Lactated Ringers 1,000 ML 125 ML IVCONT (03:14)
[2022-03-02 03:47] VITALS: BP 123/60; PULSE 68; RESP 18; TEMP 37; O2SAT 95
[2022-03-02] MEDS: ondansetron HCL 4 MG/2 ML VIAL IVPUSH (05:51)
[2022-03-02] MEDS: Levothyroxine Sodium 25 MCG TABLET PO (05:51)
[2022-03-02] MEDS: Levothyroxine Sodium 112 MCG TABLET PO (05:51)
[2022-03-02 07:09] LABS: MANUAL DIFF FLAG NO
[2022-03-02 07:14] LABS: Basophils Percent Auto 0.1 % (0-2); Hematocrit 39.2 % (37.0-47.0); Hemoglobin 13.2 g/dl (12.0-16.0); Imm Gran Abs Auto 0.08 X10*3/uL (0.00-0.03); Imm Gran Pct Auto 0.5 % (0.0-0.4); Lymphocytes Absolute Auto 1.6 X10*3/uL (1.2-4.9); Lymphocytes Percent Auto 10.3 % (20-40); Mean Corpuscular HGB Conc 33.7 g/dl (31.0-35.0); Mean Corpuscular Hemoglobin 29.1 pg (27.0-33.0); Mean Corpuscular Volume 86.5 fL (80.0-98.0); Mean Platelet Volume 11.6 fL (9.4-12.3); Monocytes Percent Auto 6.8 % (2-11); Neutrophils Absolute Auto 12.7 x10*3/uL (2.0-8.3); Neutrophils Percent Auto 82.3 % (45-73); Platelet Count 210 X10*3/uL (160-400); Red Blood Count 4.53 X10*6/uL (4.20-5.50); White Blood Count 15.4 X10*3/uL (4.8-10.8)
[2022-03-02 07:33] LABS: Anion Gap 19 (12-20); Blood Urea Nitrogen 8 mg/dL (9-16); Calcium 8.8 mg/dL (8.4-10.2); Carbon Dioxide 20 mmol/L (22-29); Chloride 104 mmol/L (96-108); Creatinine Clr Calc Pharmacy 126.8; Estimated Glomerular Filt Rate > 60; Glucose Random 77 mg/dL (60-115); Potassium 4.3 mmol/L (3.3-5.1); Sodium 139 mmol/L (135-145)
[2022-03-02 07:55] VITALS: BP 115/64; PULSE 65; RESP 18; TEMP 36.2; O2SAT 99
--- NOTE | 2022-03-02 09:51 | MHC.CM.PN ---
PT LIVES WITH SON, INDEPENDENT WITH CARE PT WILL DC HOME TODAY WITH NO SERVICES PT TO ARRANGE TRANSPORT
--- NOTE | 2022-03-02 13:26 | HO.POSTANES ---
Post Anesthesia Evaluation Post Anesthesia Evaluation Vital Signs: Vital Signs Temp Pulse Resp BP Pulse Ox O2 Del Method 03/02/22 07:55 97.2 F 65 18 115/64 99 Room Air 03/02/22 03:47 98.6 F 68 18 123/60 95 Room Air Anesthesia: General Endotracheal-GETA Mental Status: Awake Pain Control: Satisfactory Nausea/Vomiting: None Hydration: Adequate Anesthesia-Related Issues: No Anes. Related Issues
== END 2022-03-02 09:51 | disposition home or self-care (01) | DRG 403 ==
LOC: HO.SSSA 11:20 → HO.S3 11:55
PROVIDERS: Physician Assistant Surgical; Admitting Provider Surgery; PCP Internal Medicine; Visit Provider Surgery
PROC: 0DB64Z3 Excision of Stomach, Percutaneous Endoscopic Approach, Vertical (ICD-10-PCS; CPT 43845; principal; 2022-03-01 07:30)
DX: E66.01 Morbid (severe) obesity due to excess calories (principal); K44.0 Diaphragmatic hernia with obstruction, without gangrene; E03.9 Hypothyroidism, unspecified; Q43.3 Congenital malformations of intestinal fixation; F32.A Depression, unspecified; K21.9 Gastro-esophageal reflux disease without esophagitis; M19.90 Unspecified osteoarthritis, unspecified site; Z68.41 Body mass index [BMI] 40.0-44.9, adult; Z20.822 Contact with and (suspected) exposure to COVID-19; Z79.890 Hormone replacement therapy; Z79.899 Other long term (current) drug therapy
CPT/HCPCS: 36415; 80048; 80053; 80061; 83036; 83525; 84443; 85014; 85018; 85025; 85610; 85730; 86140; 86850; 86900; 86901; 87635; 88305; 88307; 88342; A4649; C9088; J0131; J0690; J1100; J1170; J2250; J2370; J2405; J2795; J3010

== ENCOUNTER → 2022-03-19 10:21 | Outpatient (BNVA) | payer MEDICAID, SELFPAY | PROVIDERS: PCP Internal Medicine; Visit Provider Physician Assistant Surgical | DX: E66.9 Obesity, unspecified (principal); Z98.84 Bariatric surgery status; Z68.39 Body mass index [BMI] 39.0-39.9, adult | CPT/HCPCS: 99212 ==

== ENCOUNTER → 2022-04-05 10:16 | Outpatient (BNVA) | payer MEDICAID, SELFPAY | PROVIDERS: PCP Internal Medicine; Visit Provider Physician Assistant Surgical | DX: E66.9 Obesity, unspecified (principal); Z68.42 Body mass index [BMI] 45.0-49.9, adult; Z87.19 Personal history of other diseases of the digestive system; Z98.84 Bariatric surgery status; Z98.890 Other specified postprocedural states | CPT/HCPCS: 99212 ==

== ENCOUNTER → 2022-05-11 12:57 | Outpatient (BNVA) | payer MEDICAID, SELFPAY | PROVIDERS: PCP Internal Medicine; Visit Provider Physician Assistant Surgical | DX: E66.9 Obesity, unspecified (principal); Z68.37 Body mass index [BMI] 37.0-37.9, adult; Z98.84 Bariatric surgery status | CPT/HCPCS: 99212 ==

== ENCOUNTER → 2022-06-11 13:01 | Outpatient (BNVA) | payer MEDICAID, SELFPAY | PROVIDERS: PCP Internal Medicine; Visit Provider Physician Assistant Surgical | DX: E66.9 Obesity, unspecified (principal); R14.0 Abdominal distension (gaseous); Z68.37 Body mass index [BMI] 37.0-37.9, adult; Z90.3 Acquired absence of stomach [part of] | CPT/HCPCS: 99212 ==

== ENCOUNTER → 2022-07-27 15:50 | Outpatient (BNVA) | payer MEDICAID, SELFPAY | PROVIDERS: PCP Internal Medicine; Visit Provider Physician Assistant Surgical | DX: E66.9 Obesity, unspecified (principal); Z98.84 Bariatric surgery status; Z68.37 Body mass index [BMI] 37.0-37.9, adult | CPT/HCPCS: 99212 ==

== ENCOUNTER → 2022-09-10 08:41 | Outpatient (BNVA) | payer OTHER, SELFPAY | PROVIDERS: PCP Internal Medicine; Visit Provider Physician Assistant Surgical | DX: E66.9 Obesity, unspecified (principal); Z68.34 Body mass index [BMI] 34.0-34.9, adult; Z90.3 Acquired absence of stomach [part of] | CPT/HCPCS: 99212 ==

== ENCOUNTER 2022-12-06 05:59 | Outpatient (REF) | payer OTHER, SELFPAY ==
[2022-12-06 06:15] LABS: MANUAL DIFF FLAG NO
[2022-12-06 07:09] LABS: Basophils Percent Auto 0.2 % (0-2); Eosinophils Absolute Auto 0.1 X10*3/uL (0.0-0.4); Eosinophils Percent Auto 1.2 % (0-4); Hematocrit 39.4 % (37.0-47.0); Hemoglobin 13.7 g/dl (12.0-16.0); Imm Gran Abs Auto 0.02 X10*3/uL (0.00-0.03); Imm Gran Pct Auto 0.3 % (0.0-0.4); Lymphocytes Absolute Auto 2.2 X10*3/uL (1.2-4.9); Lymphocytes Percent Auto 37.3 % (20-40); Mean Corpuscular HGB Conc 34.8 g/dl (31.0-35.0); Mean Corpuscular Hemoglobin 31.8 pg (27.0-33.0); Mean Corpuscular Volume 91.4 fL (80.0-98.0); Mean Platelet Volume 11.5 fL (9.4-12.3); Monocytes Absolute Auto 0.4 X10*3/uL (0.1-1.2); Monocytes Percent Auto 6.1 % (2-11); Neutrophils Absolute Auto 3.2 x10*3/uL (2.0-8.3); Neutrophils Percent Auto 54.9 % (45-73); Platelet Count 160 X10*3/uL (160-400); Red Blood Count 4.31 X10*6/uL (4.20-5.50); Red Cell Distribution Width 12.1 % (11.0-16.0); White Blood Count 5.8 X10*3/uL (4.8-10.8)
[2022-12-06 07:25] LABS: Estimated Average Glucose 82 mg/dL; Hemoglobin A1c % 4.5 %
[2022-12-06 08:10] LABS: Alanine Aminotransferase 13 U/L (0-31); Albumin Level 3.8 g/dL (3.5-5.0); Alkaline Phosphatase 48 U/L (39-117); Anion Gap 11 (12-20); Aspartate Amino Transferase 14 U/L (5-31); Bilirubin Total 0.7 mg/dL (0.0-1.0); Blood Urea Nitrogen 14 mg/dL (9-16); C Reactive Protein < 0.10 mg/dL (< or = 0.50); Calcium 9.5 mg/dL (8.4-10.2); Carbon Dioxide 27 mmol/L (22-29); Chloride 107 mmol/L (96-108); Cholesterol 180 mg/dL; Estimated Glomerular Filt Rate > 60; Glucose Random 79 mg/dL (60-115); HDL Cholesterol 49 mg/dL; Iron 98 mcg/dL (30-160); LDL Cholesterol Calculated 118 mg/dl; Percent Iron Saturation 39 % (15-50); Potassium 3.7 mmol/L (3.3-5.1); Sodium 141 mmol/L (135-145); Total Iron Binding Capacity 253 mcg/dL (228-428); Total Protein 6.8 g/dL (6.5-8.0); Triglycerides 69 mg/dL; Unsaturated Iron Binding 155 ug/dL
[2022-12-06 08:30] LABS: Ferritin 160 ng/mL (10-250); Insulin 4 uU/mL (2-29); TSH reflex Free T4 0.29 uIU/mL (0.32-4.0); Vitamin D 25-OH Total 37.2 ng/mL (>30)
[2022-12-06 08:44] LABS: Folate 13.8 ng/mL (> or = 4.0); Vitamin B12 1254 pg/mL (200-900)
[2022-12-07 19:38] LABS: Calcium (PTHI) 9.3 mg/dL (8.6-10.2); PTHI 50 pg/mL (16-77)
[2022-12-11 04:33] LABS: Zinc 82 mcg/dL (60-130)
[2022-12-12 06:03] LABS: Vitamin B1 10 nmol/L (8-30)
[2022-12-12 18:28] LABS: Vitamin A 34 mcg/dL (38-98)
== END 2022-12-06 06:00 | disposition home or self-care (01) ==
LOC: HO.LAB 05:59
PROVIDERS: PCP Internal Medicine; Visit Provider Physician Assistant Surgical
DX: K91.2 Postsurgical malabsorption, not elsewhere classified (principal); Z98.84 Bariatric surgery status
CPT/HCPCS: 36415; 80053; 80061; 82306; 82607; 82728; 82746; 83036; 83525; 83540; 83970; 84425; 84439; 84443; 84590; 84630; 85025; 86140

== ENCOUNTER 2022-12-10 08:52 | Outpatient (AMB) | payer MEDICAID, SELFPAY ==
--- NOTE | 2022-12-10 08:57 | MHC.OFFVISWM ---
Intake VS Expanded 12/10/22 09:04 Height 5 ft 4 in Weight 202 lb BMI 34.7 BP 132/83 Blood Pressure Location Rt brachial Blood Pressure Position Sitting Pulse 61 Pulse Source Pulse Oximeter Temp 97.7 F Temperature Source Temporal Artery Scan Pulse Oximetry 99 Oxygen Delivery Method Room Air Body Fat 71.8 Body Fat Percentage 35.6 Free Fat Mass 130.0 Muscle Mass 123.4 Visceral Mass 8.0 Water Mass 92.8 BMR 1,774 Intake Visit Reasons: (OV) PO LSG 03/01/22 Allergies No Known Allergies Allergy (Verified 12/10/22 09:02) Medication List - Last Reconciled 12/10/22 by LES Zhu levothyroxine 125 mcg PO DAILY 90 days [womens one a day MVI PO] HPI HPI Comments History of Present Illness Details 42 yo female s/p LSG 03/01/22. Presents for 9 month follow up visit weight today 202.0 pounds with a BMI of 34.7 Initial weight on 11/03/21 was 282.4 with a BMI of 48.5 Total weight loss of 80.4 pounds or 28 % TBWL. Weight at surgery 243.4 pounds. Weight loss since surgery is 41.4 pounds or 17 % TBWL She reports she feels great. Taking a women's one a day MVI 4/7 days of the week no Flavio +D. Happy w meal plan. Meal plan: 1 Celebrate shake with 2 scoops in 8oz 1% milk 1 20g protein bar -One bar 2 small meals of 2oz protein and 2oz veg drinking 96 oz Exercise: Treadmill 15 minutes, 200-250 calories, 5 days per week. then weights PFSH Medical History Hiatal hernia History of COVID-19 History of depression Hypothyroid Mild acid reflux PONV (postoperative nausea and vomiting) Surgical History Hx of arthroscopy of right knee Hx of colonoscopy Hx of dilation and curettage Hx of hysterectomy Hx of oral surgery Hx of tonsillectomy Family History Mother No problems noted. Father Colon cancer Sister No problems noted. Sister No problems noted. Sister No problems noted. Brother No problems noted. Brother No problems noted. Brother No problems noted. Son No problems noted. Son No problems noted. Son No problems noted. Sister No problems noted. Sister No problems noted. Social History Are you a primary career placement services counselor to a significant other at home: No Do you presently have visiting nurse or other home services: No Alcohol intake: never Patient Tobacco Use Status: Never used Tobacco Review of Systems Const All systems reviewed & are unremarkable except as noted in HPI and below Physical Exam Vital Signs: Last Vital Signs Temp 97.7 F 12/10/22 09:04 Pulse 61 12/10/22 09:04 BP 132/83 12/10/22 09:04 Pulse Ox 99 12/10/22 09:04 Oxygen Delivery Method Room Air 12/10/22 09:04 BMI result Body Mass Index 34.7 Const General: healthy appearing and no acute distress Resp Effort & Inspection: normal respiratory effort Auscultation: clear to auscultation bilaterally Cardio Rate: regular rate Rhythm: regular rhythm GI Auscultation: normal bowel sounds Extrem General: Yes normal to inspection Assessment & Plan Assessment & Plan (1) Obesity: Code(s): E66.9 - Obesity, unspecified Plan: Encouraged to increase exercise to 400 calories per session and to change to do weights first Add Celebrate Flavio+D 2 per day She is satisfied w meal plan RTC for yearly f/u (2) Hypothyroid: Code(s): E03.9 - Hypothyroidism, unspecified Plan: discussed slightly low TSH and will reduce Levothyroxine to 125 mcg daily. She states her PCP typically manages her thyroid and she has f/u next month Medications: New levothyroxine 125 mcg PO DAILY 90 days 90 tabs 0RF Coding Level of Care Code Est Pt Level 4 (75513) Diagnoses Obesity E66.9 Hypothyroid E03.9
[2022-12-10 09:04] VITALS: BP 132/83; PULSE 61; TEMP 36.5; O2SAT 99; BMI 34.7
== END 2022-12-10 09:36 | disposition home or self-care (01) ==
PROVIDERS: Visit Provider Physician Assistant Surgical
DX: E66.9 Obesity, unspecified (principal); E03.9 Hypothyroidism, unspecified
CPT/HCPCS: 99214

== ENCOUNTER → 2022-12-10 08:52 | Outpatient (BNVA) | payer MEDICAID, SELFPAY | PROVIDERS: Visit Provider Physician Assistant Surgical | DX: E66.9 Obesity, unspecified (principal); E03.9 Hypothyroidism, unspecified; Z68.34 Body mass index [BMI] 34.0-34.9, adult | CPT/HCPCS: 99214 ==

== ENCOUNTER 2023-02-28 10:37 | Outpatient (AMB) | payer MEDICAID, SELFPAY ==
--- NOTE | 2023-02-28 10:54 | MHC.OFFVISWM ---
Intake VS Expanded 02/28/23 11:01 BP 128/67 Blood Pressure Location Rt brachial Blood Pressure Position Sitting Pulse 66 Pulse Source Pulse Oximeter Temp 97.3 F Temperature Source Tympanic Pulse Oximetry 99 Oxygen Delivery Method Room Air Height 5 ft 4 in Weight 199 lb 6.4 oz BMI 34.2 Body Fat % 36.9 Body Fat Mass 73.6 Fat Free Mass 125.6 Visceral Fat Rating 8.0 Body Water % 45.0 Body Water Mass 89.8 Muscle Mass/Score 119.2 Basal Metabolic Rate/Score 1,721 Intake Visit Reasons: (OV) PO LSG 03/01/22 Allergies No Known Allergies Allergy (Verified 12/10/22 09:02) Medication List - Last Reconciled 02/28/23 by LES Levine levothyroxine 125 mcg PO DAILY 90 days vitamin A palmitate 10,000 units PO DAILY [womens one a day MVI PO] HPI HPI Comments History of Present Illness Details This?is a?42?yo female who is s/p LSG 03/01/2022. Presents for 1 year post op visit. Weight at last visit on 12/10/2022 was 202 pounds with a BMI of 34.7, weight today is 199.4 pounds, representing a 2.6 pound weight loss with a BMI today of 34.2.? No complaints of nausea, emesis, abdominal pain or reflux, or constipation. 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 Tends to miss meals sometimes. Had TSH retested with improvement by PCP. Present meal plan includes: 1 Celebrate shake with 2 scoops in 8oz 1% milk 1 20g protein bar -One bar 2 small meals of 2oz protein and 2oz veg drinking 96 oz, also bought Gatorade protein zepeda to help increase protein intake Exercise: walks 3 miles a night, tries to lift weights on weekends Did the patient ever have any of these conditions and are they resolved or still being treated? GERD: never XIANG:? never DM:? never HTN:? never Hyperlipidemia:? never? Post op complications:? never PFSH Medical History Hiatal hernia History of COVID-19 History of depression Hypothyroid Mild acid reflux PONV (postoperative nausea and vomiting) Surgical History Hx of arthroscopy of right knee Hx of tonsillectomy Hx of dilation and curettage Hx of oral surgery Hx of hysterectomy Hx of colonoscopy Family History Mother No problems noted. Father Colon cancer Sister No problems noted. Sister No problems noted. Sister No problems noted. Brother No problems noted. Brother No problems noted. Brother No problems noted. Son No problems noted. Son No problems noted. Son No problems noted. Sister No problems noted. Sister No problems noted. Social History Are you a primary home health care physician to a significant other at home: No Do you presently have visiting nurse or other home services: No Alcohol intake: never Patient Tobacco Use Status: Never used Tobacco Physical Exam Vital Signs: Last Vital Signs Temp 97.3 F 02/28/23 11:01 Pulse 66 02/28/23 11:01 BP 128/67 02/28/23 11:01 Pulse Ox 99 02/28/23 11:01 Oxygen Delivery Method Room Air 02/28/23 11:01 BMI result Body Mass Index 34.2 Const General: cooperative, comfortable and no acute distress Orientation/consciousness: patient oriented x3 GI Other: soft, nontender, nondistended, incisions well healed, no hernia, no masses Neuro General: patient oriented x3 Assessment & Plan Assessment & Plan (1) Obesity: Code(s): E66.9 - Obesity, unspecified (2) S/P laparoscopic sleeve gastrectomy: Code(s): Z98.84 - Bariatric surgery status Plan Pt would like to continue current meal plan and try to increase protein intake, avoid skipping meals. She is hopeful that her work schedule will improve soon which will allow more time for exercise. Labs just done in November, will not repeat today, continue current vitamin regimen. RTC 3 months. Patient is obese and is not considered stable at this time. I spent a total of 30 minutes reviewing/updating records, examining the patient and counseling the patient on weight management as detailed above. Coding Level of Care Code Est Pt Level 4 (39765) Diagnoses Obesity E66.9 S/P laparoscopic sleeve gastrectomy Z98.84
[2023-02-28 11:01] VITALS: BP 128/67; PULSE 66; TEMP 36.3; O2SAT 99; BMI 34.2
== END 2023-02-28 11:31 | disposition home or self-care (01) ==
PROVIDERS: PCP Internal Medicine; Visit Provider Physician Assistant Surgical
DX: E66.9 Obesity, unspecified (principal); Z98.84 Bariatric surgery status
CPT/HCPCS: 99214

== ENCOUNTER → 2023-02-28 10:37 | Outpatient (BNVA) | payer MEDICAID, SELFPAY | PROVIDERS: PCP Internal Medicine; Visit Provider Physician Assistant Surgical | DX: E66.9 Obesity, unspecified (principal); Z68.34 Body mass index [BMI] 34.0-34.9, adult; Z98.84 Bariatric surgery status | CPT/HCPCS: 99212 ==

== ENCOUNTER 2023-06-04 13:26 | Outpatient (AMB) | payer MEDICAID, SELFPAY ==
--- NOTE | 2023-06-04 12:38 | A.OFFVIS_ITS ---
Intake VS Expanded 06/04/23 12:43 Height 5 ft 4 in Weight 192 lb 6 oz BMI 33.0 Intake Visit Reasons: TV PO LSG 03/01/22 Allergies No Known Allergies Allergy (Verified 12/10/22 09:02) Medication List - Last Reconciled 06/04/23 by LES Levine levothyroxine 125 mcg PO DAILY 90 days vitamin A palmitate 10,000 units PO DAILY [womens one a day MVI PO] HPI HPI Comments History of Present Illness Details This?is a?42?yo female who is s/p LSG 03/01/2022. Presents for 15 month post op visit. Weight at last visit on 03/01/2023 was 199.4 pounds with a BMI of 34.2, weight today is 192.6 pounds, representing a 6.8 pound weight loss with a BMI today of 33.? No complaints of nausea, emesis, abdominal pain or reflux, or constipation. Still very busy with work. Pt is happy with her rate of progress. Present meal plan includes: 1 Celebrate shake with 2 scoops in 8oz 1 % milk 1 20g protein bar -One bar 2 small meals of 2oz protein and 2oz veg drinking 96 oz, also bought Gatorade protein zepeda to help increase protein intake Exercise: walks 3 miles a night, tries to lift weights on weekends [facility] Medical History Hiatal hernia History of COVID-19 History of depression Hypothyroid Mild acid reflux PONV (postoperative nausea and vomiting) Surgical History Hx of arthroscopy of right knee Hx of tonsillectomy Hx of dilation and curettage Hx of oral surgery Hx of hysterectomy Hx of colonoscopy Family History Mother No problems noted. Father Colon cancer Sister No problems noted. Sister No problems noted. Sister No problems noted. Brother No problems noted. Brother No problems noted. Brother No problems noted. Son No problems noted. Son No problems noted. Son No problems noted. Sister No problems noted. Sister No problems noted. Social History Are you a primary daycare worker to a significant other at home: No Do you presently have visiting nurse or other home services: No Alcohol intake: never Patient Tobacco Use Status: Never used Tobacco Assessment & Plan Assessment & Plan (1) Obesity: Code(s): E66.9 - Obesity, unspecified (2) S/P laparoscopic sleeve gastrectomy: Code(s): Z98.84 - Bariatric surgery status Plan Pt is satisfied with current meal plan, exercise regimen, and rate of weight loss. No changes made today. Will order labs again at next visit. RTC 3 months for 18 month visit. Patient is obese and is not considered stable at this time. I spent a total of 30 minutes reviewing/updating records, examining the patient and counseling the patient on weight management as detailed above. Telehealth Telehealth Location of provider rendering services: other Location of patient: address on file Patient Identification confirmed using: Name, : Yes Telehealth method: voice only Patient verbally consented to treatment: Yes Patient verbally consented to billing insurance company: Yes Patient informed of any privacy concerns related to visit: Yes Minutes spent on Phone/Video with Pt.: 12 Coding Level of Care Code Tele Est Pt Level 4 (16256) Diagnoses Obesity E66.9 S/P laparoscopic sleeve gastrectomy Z98.84
[2023-06-04 12:43] VITALS: BMI 33.0
== END 2023-06-04 13:27 | disposition home or self-care (01) ==
LOC: HO.HBS 13:26
PROVIDERS: PCP Internal Medicine; Visit Provider Physician Assistant Surgical
DX: E66.9 Obesity, unspecified (principal); Z98.84 Bariatric surgery status
CPT/HCPCS: 99214

== ENCOUNTER → 2023-06-04 13:26 | Outpatient (BNVA) | payer MEDICAID, SELFPAY | PROVIDERS: PCP Internal Medicine; Visit Provider Physician Assistant Surgical | DX: E66.9 Obesity, unspecified (principal); Z98.84 Bariatric surgery status ==

== ENCOUNTER 2023-08-29 10:20 | Outpatient (AMB) | payer MEDICAID, SELFPAY ==
--- NOTE | 2023-08-29 09:42 | MHC.OFFVISWM ---
VS Expanded 08/29/23 09:45 Height 5 ft 4 in Weight 190 lb 6 oz BMI 32.7 Intake Visit Reasons: (TELEPHONE) PO LSG 03/01/22 Allergies No Known Allergies Allergy (Verified 12/10/22 09:02) Medication List - Last Reconciled 08/29/23 by LES Levine levothyroxine 125 mcg PO DAILY 90 days vitamin A palmitate 10,000 units PO DAILY [womens one a day MVI PO] HPI Comments Details: This?is a?43?yo female who is s/p LSG 03/01/2022. Presents for 18 month post op visit. Weight at last visit on 06/04/2023 was 192.6 pounds with a BMI of 33, weight today is 190.6 pounds, representing a 2 pound weight loss with a BMI today of 32.7.? No complaints of nausea, emesis, abdominal pain or reflux, or constipation. Present meal plan includes: 1 Celebrate shake with 2 scoops in 8oz 1% milk 1 20g protein bar - One bar 2 small meals of 2oz protein and 2oz veg drinking 96 oz, also bought Gatorade protein zepeda to help increase protein intake Exercise: walks 3 miles a night, tries to lift weights on weekends plans to be more active now that weather is improving FORMERLY [facility], [facility] Medical History Hiatal hernia History of COVID-19 History of depression Hypothyroid Mild acid reflux PONV (postoperative nausea and vomiting) Surgical History Hx of arthroscopy of right knee Hx of tonsillectomy Hx of dilation and curettage Hx of oral surgery Hx of hysterectomy Hx of colonoscopy Family History Mother No problems noted. Father Colon cancer Sister No problems noted. Sister No problems noted. Sister No problems noted. Brother No problems noted. Brother No problems noted. Brother No problems noted. Son No problems noted. Son No problems noted. Son No problems noted. Sister No problems noted. Sister No problems noted. Social History Are you a primary insurance healthcare representative to a significant other at home: No Do you presently have visiting nurse or other home services: No Alcohol intake: never Patient Tobacco Use Status: Never used Tobacco Telehealth Telehealth Telehealth Platform: Telephone Location of provider rendering services: practice address Location of patient: address on file Patient Identification confirmed using: Name, : Yes Telehealth method: voice only Patient verbally consented to treatment: Yes Patient verbally consented to billing insurance company: Yes Patient informed of any privacy concerns related to visit: Yes Minutes spent on Phone/Video with Pt.: 12 Assessment & Plan Assessment & Plan (1) Obesity: Code(s): E66.9 - Obesity, unspecified Category: Medical (2) S/P laparoscopic sleeve gastrectomy: Code(s): Z98.84 - Bariatric surgery status Category: Surgical Plan Pt is happy with current meal plan. She plans to increase activity. She has lost over 125lbs since she began her weight loss journey and is satisfied with pace of weight loss. Labs ordered. RTC 6 months, pt will reach out between appts with any concerns. Patient is obese and is not considered stable at this time. I spent a total of 30 minutes reviewing/updating records, examining the patient and counseling the patient on weight management as detailed above. Orders: Orders Hemoglobin A1c Today Complete Blood Count Auto Diff Today Vitamin B12 and Folate Today Insulin Today Lipid Panel Today IRON PROFILE Today Comprehensive Met. Panel Today Zinc Today C Reactive Protein Today Vitamin B1 Today Vitamin A Today TSH reflex Free T4 Today Ferritin Today Vitamin D 25-OH Total Today
[2023-08-29 09:45] VITALS: BMI 32.7
== END 2023-08-29 10:21 | disposition home or self-care (01) ==
LOC: HO.HBS 10:20
PROVIDERS: PCP Internal Medicine; Visit Provider Physician Assistant Surgical
DX: E66.9 Obesity, unspecified (principal); Z98.84 Bariatric surgery status
CPT/HCPCS: 99214

== ENCOUNTER → 2023-08-29 10:20 | Outpatient (BNVA) | payer MEDICAID, SELFPAY | PROVIDERS: PCP Internal Medicine; Visit Provider Physician Assistant Surgical | DX: E66.9 Obesity, unspecified (principal); Z98.84 Bariatric surgery status ==

== ENCOUNTER 2023-09-11 07:39 | Outpatient (REF) | payer MEDICAID, SELFPAY ==
[2023-09-11 07:55] LABS: MANUAL DIFF FLAG NO
[2023-09-11 08:34] LABS: Basophils Percent Auto 0.3 % (0-2); Eosinophils Absolute Auto 0.1 X10*3/uL (0.0-0.4); Eosinophils Percent Auto 1.1 % (0-4); Hematocrit 38.3 % (37.0-47.0); Hemoglobin 13.5 g/dl (12.0-16.0); Imm Gran Abs Auto 0.02 X10*3/uL (0.00-0.03); Imm Gran Pct Auto 0.3 % (0.0-0.4); Lymphocytes Absolute Auto 2.6 X10*3/uL (1.2-4.9); Lymphocytes Percent Auto 42.3 % (20-40); Mean Corpuscular HGB Conc 35.2 g/dl (31.0-35.0); Mean Corpuscular Hemoglobin 31.5 pg (27.0-33.0); Mean Corpuscular Volume 89.5 fL (80.0-98.0); Monocytes Absolute Auto 0.4 X10*3/uL (0.1-1.2); Monocytes Percent Auto 6.5 % (2-11); Neutrophils Percent Auto 49.5 % (45-73); Platelet Count 171 X10*3/uL (160-400); Red Blood Count 4.28 X10*6/uL (4.20-5.50); Red Cell Distribution Width 11.9 % (11.0-16.0); White Blood Count 6.1 X10*3/uL (4.8-10.8)
[2023-09-11 08:44] LABS: Estimated Average Glucose 91 mg/dL; Hemoglobin A1c % 4.8 % (<6.0)
[2023-09-11 09:13] LABS: Alanine Aminotransferase 8 U/L (0-31); Albumin Level 3.7 g/dL (3.5-5.0); Alkaline Phosphatase 44 U/L (39-117); Anion Gap 10 (12-20); Aspartate Amino Transferase 12 U/L (5-31); Bilirubin Total 0.6 mg/dL (0.0-1.0); Blood Urea Nitrogen 13 mg/dL (9-16); C Reactive Protein < 0.04 mg/dL (< or = 0.50); Calcium 8.9 mg/dL (8.4-10.2); Carbon Dioxide 26 mmol/L (22-29); Chloride 107 mmol/L (96-108); Cholesterol 169 mg/dL (<200); Estimated Glomerular Filt Rate > 60; Glucose Random 71 mg/dL (60-115); HDL Cholesterol 48 mg/dL (>40); Iron 87 mcg/dL (30-160); LDL Cholesterol Calculated 109 mg/dL (<100); Percent Iron Saturation 37 % (15-50); Potassium 3.7 mmol/L (3.3-5.1); Sodium 139 mmol/L (135-145); Total Iron Binding Capacity 235 mcg/dL (228-428); Total Protein 6.6 g/dL (6.5-8.0); Triglycerides 63 mg/dL (<150); Unsaturated Iron Binding 148 ug/dL
[2023-09-11 09:25] LABS: Ferritin 213 ng/mL (10-250); Insulin 5 uU/mL (2-29); Vitamin D 25-OH Total 24.6 ng/mL (>30)
[2023-09-11 09:31] LABS: Folate 9.2 ng/mL (> or = 4.0); Vitamin B12 722 pg/mL (200-900)
[2023-09-11 11:21] LABS: Free T4 (Free Thyroxine) 1.29 ng/dL (0.71-1.85)
[2023-09-13 23:38] LABS: Zinc 61 mcg/dL (60-130)
[2023-09-15 10:43] LABS: Vitamin B1 19 nmol/L (8-30)
[2023-09-15 23:36] LABS: Vitamin A 27 mcg/dL (38-98)
== END 2023-09-11 07:40 | disposition home or self-care (01) ==
LOC: HO.LAB 07:39
PROVIDERS: PCP Internal Medicine; Visit Provider Physician Assistant Surgical
DX: K91.2 Postsurgical malabsorption, not elsewhere classified (principal)
CPT/HCPCS: 36415; 80053; 80061; 82306; 82607; 82728; 82746; 83036; 83525; 83540; 84425; 84439; 84443; 84590; 84630; 85025; 86140

== ENCOUNTER 2024-03-02 09:11 | Outpatient (AMB) | payer MEDICAID, SELFPAY ==
--- NOTE | 2024-03-02 09:14 | MHC.OFFVISWM ---
VS Expanded 03/02/24 09:26 BP 131/70 Blood Pressure Location Rt brachial Blood Pressure Position Sitting Pulse 71 Pulse Source Pulse Oximeter Temp 97.6 F Temperature Source Temporal Artery Scan Pulse Oximetry 99 Oxygen Delivery Method Room Air Height 5 ft 4 in Weight 195 lb 6.4 oz BMI 33.5 Body Fat % 37.0 Body Fat Mass 72.4 Fat Free Mass 123.0 Visceral Fat Rating 8.0 Body Water % 44.9 Body Water Mass 87.8 Muscle Mass/Score 116.8 Basal Metabolic Rate/Score 1,684 Intake Visit Reasons: OV PO LSG 03/01/22 Allergies No Known Allergies Allergy (Verified 03/02/24 09:25) Medication List - Last Reconciled 03/02/24 by LES Levine cholecalciferol (vitamin D3) 50 mcg PO DAILY levothyroxine 125 mcg PO DAILY 90 days vitamin A palmitate 10,000 units PO DAILY HPI Comments Details: This?is a?43?yo female who is s/p LSG 03/01/2022. Presents for 2 year post op visit. Weight at last visit on 08/29/2023 was 190.6 pounds with a BMI of 32.7, weight today is 195.4 pounds, representing a 4.8 pound weight gain with a BMI today of 33.6.? No complaints of nausea, emesis, abdominal pain or reflux, or constipation. Dealing with a lot of life stress- dog , dealing with issues/court with ex-, sprained her ankle over the summer and got COVID. Had difficulty getting back to the gym. Not eating much or getting enough hydration. Present meal plan includes: 1 Celebrate shake with 2 scoops in 8oz 1% milk 1 20g protein bar - One bar 2 small meals of 2oz protein and 2oz veg drinking 96 oz, also bought Gatorade protein zepeda to help increase protein intake Started shakes again this morning, wants to get back on track. Exercise: walks 3 miles a night, tries to lift weights on weekends Did the patient ever have any of these conditions and are they resolved or still being treated? GERD: never XIANG: never DM: never HTN: never Hyperlipidemia: never Post op complications: none Have you been diagnosed with reflux (GERD)? Score 0-5: 0=no symptoms, 1=noticeable but not bothersome (slight or occasional), 2=noticeable, bothersome but not daily, 3=bothersome and daily, 4=affects daily activities, 5=incapacitating, unable to do daily activities How bad is the heartburn: 0 Heartburn when lying down: 0 Heartburn when standing up: 0 Heartburn after meals: 0 Does heartburn change your diet: 0 Does heartburn wake you up from sleep: 0 Do you have difficulty swallowin Do you have pain with swallowin If you take medication for reflux, does this affect your daily life: 0 Total score: 0 PFSH Medical History Mild acid reflux History of COVID-19 PONV (postoperative nausea and vomiting) Hiatal hernia Hypothyroid History of depression Surgical History (Updated 03/02/24 @ 09:26 by Rose Chinchilla CMA) S/P laparoscopic sleeve gastrectomy Hx of arthroscopy of right knee Hx of tonsillectomy Hx of dilation and curettage Hx of oral surgery Hx of hysterectomy Hx of colonoscopy Family History Mother No problems noted. Father Colon cancer Sister No problems noted. Sister No problems noted. Sister No problems noted. Brother No problems noted. Brother No problems noted. Brother No problems noted. Son No problems noted. Son No problems noted. Son No problems noted. Sister No problems noted. Sister No problems noted. Social History Are you a primary manager urgent care to a significant other at home: No Do you presently have visiting nurse or other home services: No Alcohol intake: never Patient Tobacco Use Status: Never used Tobacco Assessment & Plan Assessment & Plan (1) Obesity: Code(s): E66.9 - Obesity, unspecified Category: Medical (2) S/P laparoscopic sleeve gastrectomy: Code(s): Z98.84 - Bariatric surgery status Category: Surgical Plan Adjusted meal plan to the followin Celebrate shake with 2 scoops (27g) 1 bar (Quest or ZP) 1 [place] islander yogurt 1 meal 6f/6f Gave healthy food list Labs ordered. Her personal weight loss goal is 170lbs. Wants to reach this by next summer which I think is a reasonable goal. RTC 6 months. Pt will text me with any concerns between appts. I spent a total of 30 minutes reviewing/updating records, examining the patient and counseling the patient on weight management as detailed above. Orders: Orders Insulin Today Z98.84 - Bariatric surgery status Hemoglobin A1c Today Z98.84 - Bariatric surgery status Lipid Panel Today Z98.84 - Bariatric surgery status Comprehensive Met. Panel Today Z98.84 - Bariatric surgery status Vitamin B12 and Folate Today Z98.84 - Bariatric surgery status Vitamin A Today Z98.84 - Bariatric surgery status Vitamin D 25-OH Total Today Z98.84 - Bariatric surgery status Complete Blood Count Auto Diff Today Z98.84 - Bariatric surgery status IRON PROFILE Today Z98.84 - Bariatric surgery status Zinc Today Z98.84 - Bariatric surgery status C Reactive Protein Today Z98.84 - Bariatric surgery status Vitamin B1 Today Z98.84 - Bariatric surgery status TSH reflex Free T4 Today Z98.84 - Bariatric surgery status Ferritin Today Z98.84 - Bariatric surgery status
[2024-03-02 09:26] VITALS: BP 131/70; PULSE 71; TEMP 36.4; O2SAT 99; BMI 33.5
== END 2024-03-02 09:55 | disposition home or self-care (01) ==
LOC: HO.HBS 09:11
PROVIDERS: PCP Internal Medicine; Referring Provider Internal Medicine; Visit Provider Physician Assistant Surgical
DX: E66.9 Obesity, unspecified (principal); Z98.84 Bariatric surgery status
CPT/HCPCS: 99214

== ENCOUNTER → 2024-03-02 09:11 | Outpatient (BNVA) | payer MEDICAID, SELFPAY | PROVIDERS: PCP Internal Medicine; Visit Provider Physician Assistant Surgical | DX: E66.9 Obesity, unspecified (principal); Z98.84 Bariatric surgery status; Z68.33 Body mass index [BMI] 33.0-33.9, adult | CPT/HCPCS: 99212 ==

== ENCOUNTER 2024-10-05 11:33 | Outpatient (AMB) | payer OTHER, SELFPAY ==
--- NOTE | 2024-10-05 11:02 | MHC.OFFVISWM ---
VS Expanded 10/05/24 11:04 Height 5 ft 4 in Weight 189 lb 3 oz BMI 32.5 Intake Visit Reasons: TV PO LSG 03/01/22 Allergies No Known Allergies Allergy (Verified 03/02/24 09:25) Medication List - Last Reconciled 10/05/24 by LES Levine cholecalciferol (vitamin D3) 50 mcg PO DAILY levothyroxine 125 mcg PO DAILY 90 days vitamin A palmitate 10,000 units PO DAILY HPI Comments Details: This?is a?44?yo F who is s/p LSG 03/01/2022. Presents for 2.5yr post op visit. Weight at last visit on 03/01/2024 was 195.4 pounds with a BMI of 33.5, weight today is 189.3 pounds, representing a 6.1 pound weight loss with a BMI today of 32.5.? No complaints of nausea, emesis, abdominal pain or reflux, or constipation. Present meal plan includes: 1 Celebrate shake with 2 scoops (27g) 1 bar (Quest or ZP) 1 jamaican yogurt 1 meal 6f/6f -given at last visit Exercise routine includes: walks on treadmill, tries to lift weights - has been getting to the gym more PFSH Medical History Mild acid reflux History of COVID-19 PONV (postoperative nausea and vomiting) Hiatal hernia Hypothyroid History of depression Surgical History (Updated 03/02/24 @ 09:26 by Rose Chinchilla CMA) S/P laparoscopic sleeve gastrectomy Hx of arthroscopy of right knee Hx of tonsillectomy Hx of dilation and curettage Hx of oral surgery Hx of hysterectomy Hx of colonoscopy Family History Mother No problems noted. Father Colon cancer Sister No problems noted. Sister No problems noted. Sister No problems noted. Brother No problems noted. Brother No problems noted. Brother No problems noted. Son No problems noted. Son No problems noted. Son No problems noted. Sister No problems noted. Sister No problems noted. Social History Are you a primary healthcare receptionist to a significant other at home: No Do you presently have visiting nurse or other home services: No Alcohol intake: never Patient Tobacco Use Status: Never used Tobacco Telehealth Telehealth Telehealth Platform: Telephone Location of provider rendering services: other Location of patient: address on file Patient Identification confirmed using: Name, : Yes Telehealth method: voice only Patient verbally consented to treatment: Yes Patient verbally consented to billing insurance company: Yes Patient informed of any privacy concerns related to visit: Yes Minutes spent on Phone/Video with Pt.: 16 Assessment & Plan Assessment & Plan (1) Obesity: Code(s): E66.9 - Obesity, unspecified Category: Medical (2) S/P laparoscopic sleeve gastrectomy: Code(s): Z98.84 - Bariatric surgery status Category: Surgical Plan Pt is happy with meal plan. Pace of weight loss is slow but she is satisfied with a slow and steady approach. Has increased exercise. Due for labs, reminded to have done. RTC 6mo.
[2024-10-05 11:04] VITALS: BMI 32.5
--- OUTSIDE RECORDS SUMMARY | 2024-10-05 13:15 | XMS_ITS | Data Portability ---
Author Organization [facility], , [facility] Address [address] [place] [address] Care Team Providers Care Contract Analyst Name Role Phone FAITH PULIDO Tax Staff Accountant ANDREW CARRASCO Primary Care Provider [facility] Insurance Billing Clerk Assessment No assessment recorded. Plan of Treatment Reminders Order Date Submit Date Provider Last Modified By Organization Details Last Modified Time Details Appointments LAB Follow-Up 2024 10:05A [facility] Lab Not available Not available Not available Wellness Visit 30 2024 10:15A M Andrew Carrasco MD Not available Not available Not available Lab urinalysi s, dipstick [email or web address] [place] [address] Poc, [address] [place], [address], 07/24/2022 20:08:09 Referral None recorded. Procedures colonosco py procedure (PROC) - Referral for a DIRECT booked colonosco py. This patient is <70 years old and Icelandic speaking with NO HISTORY of the following : GI bleed, chronic reflux, TN, CHF, angioplas ty, significa nt valvular heart disease, permanent pacemaker , chronic lung disease, renal failure or insuffici ency, insulin dependent diabetes, anticoagu lation, severe sleep apnea, poor tolerance or poor prep on prior colonosco py.] 2022 023 [facility], [address] [place], [address], 02/26/2023 16:07:32 Surgeries None recorded. Imaging MAMMO, screening , tomosynth esis, bilateral - Note to Provider: 2nd look consult/D iag Mammo/US Breast/Gu ided Asp/Breas t Bx as clinicall y indicated . 2022 023 [facility] (Imaging), [address], [place], [address], 05/30/2023 19:39:51 US, kidney - moderate to severe L flank pain of sudden onset 2022 023 [facility] (Imaging), [address], [place], [address], 07/26/2022 08:08:16 Medication Orders levothyro xine 125 mcg tablet 2023 024 [facility] #[id number], [address] [place], [address], 03/03/2024 10:21:51 levothyro xine 125 mcg tablet 2022 023 [facility][id number], [address] [place], [address], 02/26/2023 10:32:03 naproxen 500 mg tablet 2022 023 [facility][id number], [address] [place], [address], 07/24/2022 17:22:55 Patient TargetsNo targets recorded. Patient Instructions Encounter Date Encounter Id Patient Instructions Last Modified By Organization Details Last Modified Time 02/23/2022 [id number] Well Visit, Ages 18 to 65: Care Instructions [email or web address] Not available 02/23/2022 11:33:37 07/24/2022 [id number] Follow up if symptoms worsen or fail to improve. [email or web address] Not available 07/26/2022 23:10:11 10/03/2022 [id number] - Per our discussion you have agreed with the above assessment/plan as stated. - Please follow-up with our office as recommended and perform lab work/imaging/refe rral if indicated. - You can follow-up with our office sooner for any acute concern at [phone]. - If unable to reach our practice and you are in need of immediate care do not hesitate to seek immediate medical attention by calling 911 or going to the ER/Urgent care. - All questions answered. [email or web address] Not available 10/03/2022 16:32:02 02/26/2023 [id number] Well Visit, Ages 18 to 65: Care Instructions Not available 02/26/2023 10:32:00 03/03/2024 [id number] Well Visit, Ages 18 to 65: Care Instructions Not available 03/03/2024 10:21:50 Reason for Referral None Reported. Results Created Date Observation Date Name Description Value Unit Range Abnormal Flag Note LastModifiedBy Organization Detail LastModifiedTime 02/20/20 22 02/19/2022 TSH TSH 0.52 uIU/m L 0.50-6 .00 The Ameri can Colle ge of Endoc rinol ogy and Ameri can Thyro id Assoc iatio n recom mend goal TSH value s betwe en 0.4-4 .0 mIU/m L. Not Available [address], [address], 02/19/2022 15:41:40 07/25/19 23 07/24/2022 POC UA glu UA NEGATI VE Not Available [facility] [address] [place] [address], [address], 07/24/2022 17:19:07 07/25/19 23 07/24/2022 POC UA clarity UA CLEAR Not Available [facility] [address] [place] [address], [id number], 07/24/2022 17:19:07 07/25/19 23 07/24/2022 POC UA uro UA 0.2000 Not Available [facility] [address] [place] [address], [address], 07/24/2022 17:19:07 07/25/19 23 07/24/2022 POC UA ket UA NEGATI VE Not Available [address], [address], 07/24/2022 17:19:07 07/25/19 23 07/24/2022 POC UA pro UA NEGATI VE Not Available [facility] [address] [place] [address], [address], 07/24/2022 17:19:07 07/25/19 23 07/24/2022 POC UA nit UA NEGATI VE Not Available [facility] [address] [place] [address], [address], 07/24/2022 17:19:07 07/25/19 23 07/24/2022 POC UA paula UA NEGATI VE Not Available [facility] [address] [place] [address], [address], 07/24/2022 17:19:07 07/25/19 23 07/24/2022 POC UA pH UA 5.5000 Not Available [facility] [address] [place] [address], [address], 07/24/2022 17:19:07 07/25/19 23 07/24/2022 POC UA SG UA >=1.03 00 Not Available [facility] [address] [place] [address], [address], 07/24/2022 17:19:07 07/25/19 23 07/24/2022 POC UA color UA DARK YELLOW Not Available [facility] [address] [place] [address], [address], 07/24/2022 17:19:07 07/25/19 23 07/24/2022 POC UA blo UA NEGATI VE Not Available [facility] [address] [place] [address], [address], 07/24/2022 17:19:07 07/25/19 23 07/24/2022 POC UA rola UA NEGATI VE Not Available [facility] [address] [place] [address], [address], 07/24/2022 17:19:07 02/20/20 23 02/19/2023 TSH TSH 0.71 uIU/m L 0.50-6 .00 The Ameri can Colle ge of Endoc rinol ogy and Ameri can Thyro id Assoc iatio n recom mend goal TSH value s betwe en 0.4-4 .0 mIU/m L. Not Available [address], [address], 02/19/2023 16:40:15 02/27/2002/27/2024 CBC WBC 6.80 K/? ? ?L 3.98-1 0.04 Not Available [address], [address], 02/27/2024 12:19:21 02/27/2002/27/2024 CBC RBC 4.35 M/? ? ?L 3.93-5 .22 Not Available [address], [address], 02/27/2024 12:19:21 02/27/2002/27/2024 CBC HGB 13.6 g/dL 11.2-1 5.7 Not Available [address], [address], 02/27/2024 12:19:21 02/27/2002/27/2024 CBC HCT 39.4 % 34.1-4 4.9 Not Available [address], [address], 02/27/2024 12:19:21 02/27/2002/27/2024 CBC MCV 90.6 fL 79.4-9 4.8 Not Available [address], [address], 02/27/2024 12:19:21 02/27/2002/27/2024 CBC MCH 31.3 pg 25.6-3 2.2 Not Available [address], [address], 02/27/2024 12:19:21 02/27/2002/27/2024 CBC MCHC 34.5 g/dL 32.2-3 5.5 Not Available [address], [address], 02/27/2024 12:19:21 02/27/2002/27/2024 CBC plt 177 K/? ? ?L 182-36 9 low Not Available [address], [address], 02/27/2024 12:19:21 02/27/2002/27/2024 CBC MPV 11.9 fL 9.4-12 .3 Not Available [address], [address], 02/27/2024 12:19:21 02/27/2002/27/2024 CBC neut% 52.7 % 34.0-7 1.1 Not Available [address], [address], 02/27/2024 12:19:21 02/27/2002/27/2024 CBC neut# 3.58 1.56-6 .13 Not Available [address], [address], 02/27/2024 12:19:21 02/27/2002/27/2024 CBC lymph % 39.7 % 19.3-5 1.7 Not Available [address], [address], 02/27/2024 12:19:21 02/27/2002/27/2024 CBC lymph # 2.70 K/? ? ?L 1.18-3 .74 Not Available [address], [address], 02/27/2024 12:19:21 02/27/20 24 02/27/2024 CBC mono% 6.3 % 4.7-12 .5 Not Available [address], [address], 02/27/2024 12:19:21 02/27/20 24 02/27/2024 CBC mono# 0.43 0.24-0 .56 Not Available [address], [address], 02/27/2024 12:19:21 02/27/20 24 02/27/2024 CBC eo% 0.6 % 0.7-5. 8 low Not Available [address], [address], 02/27/2024 12:19:21 02/27/20 24 02/27/2024 CBC eo# 0.04 0.04-0 .36 Not Available [address], [address], 02/27/2024 12:19:21 02/27/20 24 02/27/2024 CBC baso% 0.4 % 0.1-1. 2 Not Available [address], [address], 02/27/2024 12:19:21 02/27/2002/27/2024 CBC baso# 0.03 0.00-0 .08 Not Available [address], [address], 02/27/2024 12:19:21 02/27/20 24 02/27/2024 CBC RDW-CV 12.0 % 11.7-1 4.4 Not Available [address], [address], 02/27/2024 12:19:21 02/27/20 24 02/27/2024 CBC Ig% 0.300 % 0.000- 1.500 Ig % >0.5 Indic ates possi ble Left Shift Not Available [address], [address], 02/27/2024 12:19:21 02/27/20 24 02/27/2024 CBC Ig# 0.020 0.000- 0.093 Not Available [address], [address], 02/27/2024 12:19:21 02/27/2002/27/2024 CBC NRBC% 0.0 % 0.0-0. 2 Not Available [address], [address], 02/27/2024 12:19:21 02/27/20 24 02/27/2024 CBC NRBC# 0.000 0.000- 0.012 Not Available [address], [address], 02/27/2024 12:19:21 02/27/2002/27/2024 COMP. METAB OLIC PANEL glucose 83 mg/dL 70-100 Not Available [address], [address], 02/27/2024 13:55:41 02/27/2002/27/2024 COMP. METAB OLIC PANEL BUN 20 mg/dL 7-18 high Not Available [address], [address], 02/27/2024 13:55:41 02/27/20 24 02/27/2024 COMP. METAB OLIC PANEL creatinine 0.7 mg/dL 0.8-1. 3 low Not Available [address], [address], 02/27/2024 13:55:41 02/27/2002/27/2024 COMP. METAB OLIC PANEL B/C 28.6 ratio Not Available [address], [address], 02/27/2024 13:55:41 02/27/2002/27/2024 COMP. METAB OLIC PANEL GFR >=60ML /MIN mL/mi n normal >=60m L/min - Sydnie l or midly reduc ed <60mL /min- Decre ased kidne y funct ion <15mL /min - Kidne y failu re [facility] calcu lates estim ated Glome rular Filtr ation Rate (eGFR ) using the Chron ic Kidne y Disea se Epide miolo gy Colla borat ion (CKD- EPI) Equat ion (Stephania r et. al 2020) as recom espinoza d by the Natio nal Kidne y Found ation . eGFR is based on age, serum creat inine , and sex. CKD-E PI does not calcu late eGFR by race, does not apply to child [place] (age <18 years ), and shoul d not be used in pregn bonita. Not Available [address], [address], 02/27/2024 13:55:41 02/27/20 24 02/27/2024 COMP. METAB OLIC PANEL sodium 141 mmol/ L 136-14 5 Not Available [address], [address], 02/27/2024 13:55:41 02/27/20 24 02/27/2024 COMP. METAB OLIC PANEL potassium 3.6 mmol/ L 3.5-5. 1 Not Available [address], [address], 02/27/2024 13:55:41 02/27/20 24 02/27/2024 COMP. METAB OLIC PANEL chloride 104 mmol/ L 96-107 Not Available [address], [address], 02/27/2024 13:55:41 02/27/20 24 02/27/2024 COMP. METAB OLIC PANEL anion gap 9.2 5.0-15 .0 Not Available [address], [address], 02/27/2024 13:55:41 02/27/20 24 02/27/2024 COMP. METAB OLIC PANEL CO2 28 mmol/ L 21-32 Not Available [address], [address], 02/27/2024 13:55:41 02/27/20 24 02/27/2024 COMP. METAB OLIC PANEL calcium 8.9 mg/dL 8.5-10 .3 Not Available [address], [address], 02/27/2024 13:55:41 02/27/2002/27/2024 COMP. METAB OLIC PANEL total protein 7.5 g/dL 6.4-8. 2 Not Available [address], [address], 02/27/2024 13:55:41 02/27/2002/27/2024 COMP. METAB OLIC PANEL albumin 3.8 g/dL 3.4-5. 0 Not Available [address], [address], 02/27/2024 13:55:41 02/27/2002/27/2024 COMP. METAB OLIC PANEL globulin 3.7 g/dL Not Available [address], [address], 02/27/2024 13:55:41 02/27/2002/27/2024 COMP. METAB OLIC PANEL A/G 1.0 ratio 0.8-2. 0 Not Available [address], [address], 02/27/2024 13:55:41 02/27/2002/27/2024 COMP. METAB OLIC PANEL total bilirubin 0.70 mg/dL 0.00-1 .00 Not Available [address], [address], 02/27/2024 13:55:41 02/27/2002/27/2024 COMP. METAB OLIC PANEL AST 8 U/L 0-37 Not Available [address], [address], 02/27/2024 13:55:41 02/27/2002/27/2024 COMP. METAB OLIC PANEL ALT 19 U/L 6-63 Not Available [address], [address], 02/27/2024 13:55:41 02/27/20 24 02/27/2024 COMP. METAB OLIC PANEL alk. phos. 53 U/L 50-136 Not Available [address], [address], 02/27/2024 13:55:41 02/27/20 24 02/27/2024 TSH TSH 0.45 uIU/m L 0.50-6 .00 low The Ameri can Colle ge of Endoc rinol ogy and Ameri can Thyro id Assoc iatio n recom mend goal TSH value s betwe en 0.4-4 .0 mIU/m L. Not Available [address], [address], 02/27/2024 14:01:18 03/09/20 24 03/10/2024 IMMUN OCHEM ICAL FECAL OCCUL T BLOOD ifobt NEGATI VE negati ve Not Available [address], [address], 03/10/2024 09:35:51 05/30/19 24 05/30/2023 MAMMO , scree gary, tomos ynthe sis, bilat eral MAMMO, SCREEN , LEXIS, BILAT: 05/30/19. BI-RAD S: 1 CLINIC AL: 42-yea r old Female for Bilate ral Screen ing Mammog minesh. No person al or first- degree family histor y of breast cancer . PRIOR EXAMS: This is a baseli ne mammog minesh. MAMMOG LORA TECHNI QUE: 3D mammog lora (tomos ynthes is) and 2D mammog lora (C-vie w) images are genera trey. Images review ed with a CAD system . DENSIT Y B. There are scatte red areas of fibrog landul ar densit y. MAMMOG LORA FINDIN GS Bilate ral: No suspic ious mass, asymme try, microc alcifi cation , or other abnorm ality seen. CONCLU THOMPSON * No eviden ce of malign bonita. RECOMM ENDATI ONS Bilate ral * Annual screen ing mammog lora. ADMINI STRATI VE: A lay summar y was mailed to your patien kimberly arrington the result s and recomm endati ons for follow -up. OVERAL L ASSESS MENT CATEGO RY BI-RAD S-1: Negati ve. The [employer] o[employer] recomm ends annual screen ing mammog lora beginn ing at age 40 for women with averag e risk of breast cancer . ELECTR ONICAL LY SIGNED : Alexis Jones ms, M.D. on 2023 at 07:39: 17 PM Seb Lovett payal: Alexis Jones ms [address] (Imaging) [address] [place] [address] [place], [address], 05/31/2023 10:29:06 Result Notes None recorded. Problems Name Problem SNOMED Code Status Onset Date Resolution Date Notes Provider Name and Address Organization Details Recorded Time Hypothyro idism 47962916 Active [place], [address], [facility] 6 12:56:59 Dysmenorr hea 030633060 Active Mandi Venegas PA-C [address] [place] [address] [place], [address], [facility] 6 12:56:59 Goiter 4315215 Active Mandi Venegas PA-C [address] [place] [address] [place], [address], [facility] 6 12:56:59 Family history of cancer of colon 810439664 Active [place], [address], [facility] 6 12:56:59 Morbid obesity 267247671 Active 2015 ROSA Gonzalez [address] [place], [place] [address], [address], [facility] 6 14:09:56 Fatigue 88536269 Completed 201506/06/2016 Andrew Carrasco MD [address] [place] [address] [place], [address], [facility] 7 11:10:49 Daytime somnolenc e 05639437781 0 Completed 201506/06/2016 Andrew Carrasco MD [address] [place], [place] [address], [address], [facility] 7 11:10:56 Vitamin D deficienc y 05048424 Active 2015 ROSA Gonzalez [address] [place], [place] [address], [address], [facility] 6 12:44:47 Sleep apnea 14186201 Completed 201606/06/2016 Andrew Carrasco MD [address] [place] [address] [place], [address], [facility] 7 11:10:52 Obstructi ve sleep apnea syndrome 12983717 Active 2016 Adnrew Carrasco MD [address] [place] [address] [place], [address], [facility] 7 11:10:44 History of bariatric surgical procedure 652062878 Active 2022 sleeve - 2 Andrew Carrasco MD [address] [place], [place] [address], [address], [facility] 3 10:42:10 Total hysterect eunice Active 2023 Andrew Carrasco MD [address] [place] [address] [place], [address], [facility] 4 10:14:25 Obesity 598320664 Completed 12/27/2015 ROSA Gonzalez [address] [place] [address] [place], [address], [facility] 6 14:11:40 34544218 Completed 11/16/2013 Mandi Venegas PA-C [address] [place] [address] [place], [address], [facility] 6 12:56:59 Joint pain in ankle and foot Completed 03/18/2013 Mandi Venegas PA-C [address] [place] [address] [place], [address], [facility] 6 12:56:59 Problem Notes None recorded. Procedures Surgical History Date Name Laterality Status Provider Name and Address Organization Details Recorded Time 03/01/20 22 laparoscopic sleeve gastrectomy completed Laura Kirby MD [address] [place] [address], [phone], [facility] 04/05/2022 11:20:03 02/09/20 20 prevention-carlos maya alcohol misuse screening completed ERIKA Cruz [facility] 02/09/2020 10:14:05 12/18/19 18 Colonoscopy completed Laura Kirby MD [address] [place] [address], [address], [facility] 04/05/2022 11:20:52 07/25/19 18 POC Urinalysis Testing completed Andrew Carrasco MD [address] [place] [address], [phone], [facility] 07/24/2017 13:43:44 03/20/20 17 Total Hysterectomy completed Laura Kirby MD [address] [place] [address], [address], [facility] 04/05/2022 11:29:05 04/28/20 16 POC Strep Testing completed Alexa Martinez MA [facility] 04/28/2016 11:14:20 01/20/20 16 Phoenix Sleepiness Scale completed ROSA Gonzalez [address] [place] [address], [address], [facility] 01/20/2016 16:24:20 03/16/20 10 Treatment and Advice completed Fred Blackman [facility] 03/16/2010 10:20:23 03/14/20 10 Treatment and Advice completed Fred Blackman [facility] 03/14/2010 11:03:23 03/09/20 10 Treatment and Advice completed Fred Blackman [facility] 03/09/2010 11:59:34 03/07/20 10 Treatment and Advice completed [facility] 03/07/2010 11:57:21 02/29/20 10 Treatment and Advice completed [facility] 02/28/2010 13:00:49 Imaging Results None recorded. Procedure Notes None recorded. Medical Equipment None Reported. Allergies No known drug allergies Medications Name Sig Start Date Stop Date Status Note LastModified by Organization Details LastModified Time magic mouthwash TAKE 1 TEASPOON FUL SWISH IN MOUTH AND SWALLOW 4 TIMES A DAY NEEDED 06/06 completed Not Available Not Available Not Available 19 chw tab active Not Available Not Available Not Available d3 50 mcg (2000 ut) caps active Not Available Not Available Not Available compounde d medicatio n 1 tsp swish in mouth and swallow qid prn 06/06 completed Not Available Not Available Not Available synthroid tab 25mcg active Not Available Not Available No t Available levothyro xine sodium 125 mcg tabs active Not Available Not Available Not Available doxycyc mono tab 100mg active Not Available Not Available Not Available d3 super strength 50 mcg (2000 ut) caps active Not Available Not Available Not Available ibuprofen tab 600mg active Not Available Not Available No t Available methylerg on tab 0.2mg active Not Available Not Available Not Available cyclobenz aprine 10 mg tablet TAKE 1 TABLET BY MOUTH EVERY 8 HOURS NEEDED FOR SPASMS 02/26 completed Not Available Not Available Not Available amoxicill in 500 mg capsule TAKE 1 CAPSULE BY MOUTH EVERY 8 HOURS UNTIL FINISHED 02/26 completed Not Available Not Available Not Available levothyro xine 137 mcg tablet TAKE 1 TABLET BY MOUTH EVERY DAY 02/26 completed Not Available Not Available Not Available doxycycli ne hyclate 100 mg capsule 11/06 completed Not Available Not Available Not Available Carafate 100 mg/mL oral suspensio n TAKE 10ML BY MOUTH TWICE A DAY 02/26 completed Not Available Not Available Not Available polyethyl hina glycol 3350 17 gram oral powder packet PLEASE SEE ATTACHED FOR DETAILED DIRECTIO NS 03/02 completed Not Available Not Available Not Available ibuprofen 800 mg tablet TAKE 1 TABLET BY MOUTH 3 TIMES A DAY NEEDED WITH FOOD 02/06 completed Not Available Not Available Not Available Lidocaine Viscous 2 % mucosal solution 06/06 completed Not Available Not Available Not Available valacyclo vir 1 gram tablet TAKE 1 TABLET BY MOUTH EVERY 8 HOURS FOR 7 DAYS 02/06 completed Not Available Not Available Not Available hydrocodo ne 5 mg-acetam inophen 325 mg tablet TAKE 1 TABLET BY MOUTH EVERY 8 HOURS NEEDED FOR 5 DAYS. 02/06 completed Not Available Not Available Not Available ondansetr on HCl 4 mg tablet TAKE 1 TABLET BY MOUTH EVERY 12 HOURS NEEDED FOR NAUSEA AND VOMITING 07/24 completed Not Available Not Available Not Available penicilli n V potassium 500 mg tablet TAKE 1 TABLET EVERY 8 HOURS FOR 10 DAYS 06/06 completed Not Available Not Available Not Available tramadol 50 mg tablet Take 1 tablet every 8 hours by oral route for 5 days. 07/24 completed Not Available Not Available Not Available levothyro xine 25 mcg tablet TAKE 1 TABLET BY MOUTH DAILY WITH 100 MCG FOR 125 MCG TOTAL IN THE MORNING 02/08 completed Not Available Not Available Not Available levothyro xine 75 mcg tablet active Not Available Not Available Not Available levothyro xine 100 mcg tablet TAKE 1 TABLET BY MOUTH EVERY DAY IN THE MORNING 02/08 completed Not Available Not Available Not Available alprazola m 0.5 mg tablet 11/06 completed Not Available Not Available Not Available dicyclomi ne 20 mg tablet TAKE 1 TABLET BY MOUTH FOUR TIMES A DAY 01/31 completed Not Available Not Available Not Available Celexa 20 mg tablet Take 1 tablet every day by oral route. 10/27 completed Pt states is all out and her F/U with Dr More is 12/29/09 needs refill til seen. Not Available Not Available Not Available pantopraz ole 40 mg tablet,de layed release TAKE 1 TABLET BY MOUTH EVERY DAY 07/24 completed Not Available Not Available Not Available levothyro xine 125 mcg tablet TAKE 1 TABLET PO EVERY DAY *Needs TSH* 2023 active Not Available Not Available Not Avai lable promethaz ine 25 mg tablet 11/06 completed Not Available Not Available Not Available ibuprofen 200 mg tablet TAKE 4 TABLETS BY MOUTH 3 TIMES A DAY WITH FOOD NEEDED FOR PAIN 03/02 completed Not Available Not Available Not Available Synthroid 50 mcg tablet Take 1 tablet every day by oral route. active Not Available Not Available No t Available docusate sodium 100 mg capsule TAKE 1 CAPSULE BY MOUTH TWICE A DAY 02/26 completed Not Available Not Available Not Available ibuprofen 600 mg tablet TAKE 1 TABLET EVERY 6 HOURS NEEDED 12/28 completed Not Available Not Available Not Available levofloxa aakash 750 mg tablet 12/09 completed Not Available Not Available Not Available ketorolac 60 mg/2 mL intramusc ular solution Inject 1 mL every 6 hours by intramus cular route. 12/28 completed Not Available Not Available Not Available norethind emir (contrace ptive) 0.35 mg tablet 11/06 completed Not Available Not Available Not Available Vitamin B-1 100 mg tablet TAKE 1 TABLET BY MOUTH DAILY 03/02 completed Not Available Not Available Not Available naproxen 500 mg tablet TAKE 1 TABLET BY MOUTH EVERY 12 HOURS WITH MEALS active Not Available Not Available No t Available levothyro xine 112 mcg tablet Take 1 tablet every day by oral route. active Not Available Not Available No t Available amoxicill in 875 mg-potass ium clavulana te 125 mg tablet 02/22 completed Not Available Not Available Not Available oxycodone 5 mg tablet TAKE 1 TABLET BY MOUTH EVERY 4 HOURS NEEDED 02/22 completed Not Available Not Available Not Available hydroxyzi ne pamoate 25 mg capsule 11/06 completed Not Available Not Available Not Available Vitamin D3 25 mcg (1,000 unit) tablet TAKE 1 TABLET PO EVERY DAY IN THE EVENING. 03/02 completed Not Available Not Available Not Available levonorge strel 0.15 mg-ethiny l estradiol 30 mcg tablets,3 mos pack(91) 11/06 completed Not Available Not Available Not Available cholecalc iferol (vitamin D3) 1,250 mcg (50,000 unit) capsule TAKE 1 CAPSULE BY MOUTH EVERY WEEK 06/06 completed *06/06/16= now 1,000mcg daily*lb Not Available Not Available Not Available cholecalc iferol (vitamin D3) 50 mcg (2,000 unit) capsule TAKE 1 CAPSULE BY MOUTH EVERY DAY active Not Available Not Available No t Available GaviLyte- N 420 gram oral solution 12/09 completed Not Available Not Available Not Available Vitamin D3 125 mcg (5,000 unit) tablet TAKE 1 CAPSULE BY MOUTH DAILY 02/26 completed not all the time Not Available Not Available Not Available tranexami c acid 650 mg tablet 07/24 completed Not Available Not Available Not Available sodium,po tassium,m ag sulfates 17.5 gram-3.13 gram-1.6 gram oral soln PLEASE SEE ATTACHED FOR DETAILED DIRECTIO NS active Not Available Not Available No t Available Readi-Cat 2 2 % (w/v) oral suspensio n USE DIRECTED 12/09 completed Not Available Not Available Not Available Vitals Date Recorded Body weight Systolic blood pressure Diastolic blood pressure Provider Name and Address Organization Details Last Updated DateTime 06/11/2022 05618.14 g 133 mm[Hg] 67 mm[Hg] Guru Webb RN [facility] 06/11/2022 16:24:49 Date Recorded Body height Oxygen saturation Oxygen saturation in Arterial blood by Pulse oximetry Heart rate Systolic blood pressure Diastolic blood pressure Provider Name and Address Organization Details Last Updated DateTime 3 162.56 cm 99 % 99 % 78 /min 122 mm[Hg] 68 mm[Hg] Stacy Andrews [facility] 3 16:35:47 Date Recorded Body height Heart rate Oxygen saturation Oxygen saturation in Arterial blood by Pulse oximetry Systolic blood pressure Diastolic blood pressure Provider Name and Address Organization Details Last Updated DateTime 3 162.56 cm 74 /min 99 % 99 % 123 mm[Hg] 69 mm[Hg] Yulisa Schultz [facility] 3 16:11:21 Date Recorded Body height Body mass index (BMI) Body weight Heart rate Oxygen saturation Oxygen saturation in Arterial blood by Pulse oximetry Systolic blood pressure Diastolic blood pressure Provider Name and Address Organization Details Last Updated DateTime 2 162.56 cm 43.1 kg/m2 805502. 78 g 67 /min 98 % 98 % 110 mm[Hg] 70 mm[Hg] Ophelia Gerard [facility] 2 11:06:35 Date Recorded Body height Body mass index (BMI) Body weight Heart rate Oxygen saturation Oxygen saturation in Arterial blood by Pulse oximetry Systolic blood pressure Diastolic blood pressure Provider Name and Address Organization Details Last Updated DateTime 3 162.56 cm 35.1 kg/m2 35764.9 4 g 76 /min 99 % 99 % 108 mm[Hg] 70 mm[Hg] Aura Jimi Lee Ann [facility] 3 10:09:39 Date Recorded Body weight Body mass index (BMI) Body height Heart rate Oxygen saturation Oxygen saturation in Arterial blood by Pulse oximetry Systolic blood pressure Diastolic blood pressure Provider Name and Address Organization Details Last Updated DateTime 4 85868.1 g 33.6 kg/m2 162.56 cm 74 /min 99 % 99 % 118 mm[Hg] 60 mm[Hg] Aura Krause [facility] 4 10:08:08 Date Recorded Body weight Provider Name an d Address Organization Details Last Updated DateTime 03/06/2022 558687.98 g Laura Kirby MD [address] [place] [address], [id number] 03/07/2022 11:00:36 Date Recorded Body weight Provider Name an d Address Organization Details Last Updated DateTime 04/05/2022 923742.97 g Laura Kirby MD [address] [place] [address], [id number] [place] [address] 04/05/2022 11:19:02 Social History Question Answer Notes LastModified by Organizat ion Details LastModified Time Tobacco Smoking Status Never Smoker [facility]acy [facility] [place] [facility] 16:34:23 Do You Have An Advance Directive? No Discussed With Pt. Gave Sarah maradiaga Information not available 07/05/2009 Do You Wear A Helmet When Biking? Yes Information not available 02/23/2022 What Is Your Level Of Caffeine Consumption? Occasional Tries To Avoid It Information not available 02/22/2021 How Much Tobacco Do You Chew? None [email or web address] Information not available 03/15/2011 What Type Of Diet Are You Following? REGULAR Protien Information not available 03/03/2024 Which Illicit Or Recreational Drugs Have You Used? None [email or web address] Information not available 03/15/2011 Education 4 Year College [email or web address] Information not available 03/15/2011 What Is The Highest Grade Or Level Of School You Have Completed Or The Highest Degree You Have Received? [id number] Information not available 02/23/2022 Have There Been Any Changes To Your Family Or Social Situation? No Information not available 02/23/2022 How Many Days In The Past Year Have You Had A Heavy Drinking Consumption (4+ Female, 5+ Male)? 0 02/09/2020-L iterally None. Information not available 02/09/2020 Are There Any Guns Present In Your Home? No Information not available 03/03/2024 Do You Use Insect Repellent Routinely? Yes [email or web address] Information not available 02/22/2021 Live Alone Or With Others? With Others 4 Children Information not available 02/09/2020 Patient Has Health Care Proxy Signed And In Chart No [email or web address] Information not available 03/15/2011 Marital Status Informatio n not available 12/28/2016 Mosquito Repellent Used Routinely Yes [email or web address] Information not available 03/15/2011 What Was The Date Of Your Most Recent Tobacco Screening? 07/24/2022 [email or web address] Information not available 07/24/2022 How Many Children Do You Have? 5 Alyson Negrete (97), Kerwin Ma (01) Cindy Taylorer (02) Reinier Arabia (06) Alan Arabia (13) Information not available 12/28/2016 What Is Your Relationship Status? Single Information not available 02/23/2022 Do You Use Your Seat Belt Or Car Seat Routinely? Yes Information not available 02/22/2021 Seat Belts Used Routinely Yes [email or web address] Information not available 03/15/2011 Are You Sexually Active? Yes [email or web address] Information not available 03/15/2011 Smoke Alarm In Home Yes [email or web address] Information not available 03/15/2011 Do You Have Smoke And Carbon Monoxide Detectors In Your Home? Yes [email or web address] Information not available 02/22/2021 Are You Passively Exposed To Smoke? No Information not available 02/22/2021 How Much Tobacco Do You Smoke? No Information not available 02/06/2019 General Stress Level Medium [email or web address] Information not available 01/31/2018 Do You Use Sunscreen Routinely? Yes [email or web address] Information not available 03/15/2011 How Many Years Have You Smoked Tobacco? 0 [email or web address] Information not available 03/29/2020 Sex: Female Functional Status Question Answer Note LastModified by Organizat ion Details LastModified Time Do you use any illicit or recreational drugs? No Information not available 02/23/2022 Do you or have you ever used any other forms of tobacco or nicotine? No Information not available 02/26/2023 What is your level of alcohol consumption? None [email or web address] Information not available 11/03/2012 Do you or have you ever used smokeless tobacco? Never used smokeless tobacco Information not available 02/06/2019 Are you currently employed? 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 Never used electronic cigarettes Information not available 02/06/2019 What is your exercise level? Occasional going to the gym every morning Information not available 03/03/2024 Mental Status None recorded. Family History Relationship Description Onset Age of this Age Resolved Age Notes LastModified by Organization Details LastModified Time Sister Disorder of thyroid gland piverson Not available 2021 11:19:16 Mother Disorder of thyroid gland piverson Not available 2021 11:19:22 Maternal Grandmother Malignant tumor of breast 50 piverson Not available 2021 11:19:45 Maternal Grandmother Heart disease [email or web address] Not available 2020 10:14:18 Father Malignant tumor of colon 52 54 [email or web address] Not available 2022 10:30:04 Brother Malignant tumor of colon 47 [email or web address] Not available 2017 13:26:17 Notes:paternal 1/2 siblings - 2 sisters and 3 brothers maternal 1/2 siblints, 2 living sisters, 1 sister Medical History Condition Response Obesity Y Hypothyroid Y Colon Polyps Y Gynecological History Statement/Question Response Hysterectomy Y History of Abnormal Pap Yes Current Control Method Other Approximate Date of LMP 12/22/2015 Obstetrics History GPAL:G 0 P 0 0 0 0 Immunizations Vaccine Type Date Status Note Provider Nam e and Address Organization Details Recorded Time Td(adult) unspecified formulation 3 completed Not Available [facility] 03/14/2011 05:22:41 Influenza, split virus, trivalent, PF 3 completed Not Available [facility] 05/16/2019 02:18:59 influenza, seasonal, intradermal, preservative free 4 completed Not Available [facility] 05/16/2019 02:38:05 Influenza, split virus, quadrivalent, PF 6 completed Not Available [facility] 05/16/2019 02:21:09 Tdap 8 completed Jocelin salinas [facility] 11/06/2013 14:56:21 Tdap 8 completed Not Available [facility] 05/16/2019 02:40:14 COVID-19, mRNA, LNP-S, PF, 100 mcg/0.5mL dose or 50 mcg/0.25mL dose 1 [facility] 13:31:15 COVID-19, mRNA, LNP-S, PF, 100 mcg/0.5mL dose or 50 mcg/0.25mL dose 1 [facility] 13:31:28 Past Encounters Encounter ID Performer Location Encounter Start Date Encounter Closed Date Diagnosis/Indication Diagnosis SNOMED-CT Code Diagnosis ICD10 Code Diagnosis Note [id number] MD VISH Hernandez, [facility] [address] [facility] [place] [address] 07/05/2009 09:00:24 07/06/2009 08:55:07 [id number] MD VISH Hernandez, [facility] [address] [place] [address] 08/18/2009 10:38:34 08/18/2009 13:53:28 [id number] MD VISH Hernandez, [facility] [place], [place] [address] 09/29/2009 10:59:49 09/30/2009 09:08:23 [id number] Adrienne More MD , [facility] [place], [place] [address] 12/29/2009 11:00:35 12/30/2009 09:01:53 [id number] Adrienne More MD , [facility] [place], [place] [address] 02/02/2010 12:56:40 02/03/2010 09:03:32 [id number] [facility], [facility] [address] [place], [place] [address] 02/28/2010 12:25:18 03/02/2010 09:56:55 [id number] [facility], [facility] [address] [place], [place] [address] 03/07/2010 11:17:58 03/09/2010 08:39:48 [id number] [facility], [facility] [address] [place], [place] [address] 03/09/2010 11:19:18 03/10/2010 16:43:09 [id number] [facility], [facility] [address] [place], [place] [address] 03/14/2010 10:30:51 03/16/2010 10:35:20 [id number] [facility], [facility] [place], [place] [address] 03/16/2010 09:58:19 03/17/2010 09:51:23 [id number] Desiree Heredia PA-C , [facility] [place], [place] [address] 08/09/2010 15:31:41 08/10/2010 08:16:56 [id number] Adrienne More MD , [facility] [place], [place] [address] 10/05/2010 13:47:11 10/05/2010 15:23:01 [id number] Adrienne More MD , [facility] [place], [place] [address] 11/24/2010 12:51:10 11/27/2010 09:50:07 [id number] Adrienne More MD , [facility] [place] [address] 07/17/2011 14:44:19 07/17/2011 15:41:32 [id number] Adrienne More MD , [facility] [address] [facility] [place] [address] 11/02/2011 08:17:15 11/02/2011 09:26:25 [id number] Ria Chua PA-C , [facility] [address] [facility] [place] [address] 04/01/2012 10:44:46 04/01/2012 11:30:03 [id number] Kelly Branch PA-C , [facility] [address] [facility] [place] [address] 11/03/2012 08:54:37 11/03/2012 10:03:54 [id number] Adrienne More MD , [facility] [address] [facility] [place] [address] 02/16/2013 11:03:21 02/16/2013 11:08:08 Influenza vaccine needed [id number] Ria Chua PA-C , [facility] [address] [facility] [place] [address] 11/06/2013 14:42:10 11/06/2013 15:32:42 Adult health examination 066761830 see Risk Assessment and Lifestyle Change Counseling section above. Up to date with vaccines, pap done elsewhere. Will check lipids and glucose. Follow up annually for PE and as below. Counseling 002501202 Hypothyroidism 72731001 Low energy, check thyroid and if low, will increase thyroid dose to 75mg /day and recheck in 3 months. Dysmenorrhea 540184276 F ollowing with gynecology Goiter [id number] Obesity 977340601 Encour aged increase cardiovasc ular exercise to >20 minutes, >4d/week. [facility]. Family his tory of cancer of colon 876759649 Father with dx age 52, recommend pt have colonoscop y screening at age 47 [id number] TODD Bianchi, [facility] [place] [address] 03/02/2014 15:20:21 03/02/2014 16:18:10 Hypothyroidism 59188219 Last TSH elevated and pt feeling hypothyroi d. Dose had been increased to 75 from 50mcg 3 months ago. Will increase to 100mcg, and follow up with lab and recheck here in 8 weeks. If pt does not feel improvemen t within next couple of weeks, please call with update. Influenza vaccine needed [id number] Ria Chua PA-C , [facility] [place] [address] 05/04/2014 10:28:27 05/04/2014 11:07:55 Hypothyroidism 32041090 Obesity 148794167 Encour aged increase cardiovasc ular exercise to >20 minutes, >4d/week. Pt asking for referral to [facility] at this time. [id number] Faith Pulido RDN, NED, [facility] Nutrition [address] [address] 06/01/2014 10:56:03 06/02/2014 10:14:29 Obesity 504326126 Hypothyroidism 69287207 [id number] Faith Pulido RDN, NED, [address] [address] 07/07/2014 09:56:45 07/07/2014 10:54:56 Obesity 432700923 Hypothyroidism 02248236 [id number] Faith Pulido RDN, NED, [address] [address] 08/17/2014 09:03:15 08/17/2014 10:03:07 Hypothyroidism 85804444 Obesity 857118332 [id number] Ria Chua PA-C , [facility] [place] [address] 09/21/2014 10:40:00 09/21/2014 13:13:41 Edema of lower extremity 712219307 Suspect mild vascular insufficie ncy, no indication of cardiac or DVT etiology. Continue elevation, low NaCl diet, add compressio n stockings daily. Follow up as needed. Consider small dose diureticif not improved with conservati ve measures as above. Hypothyroidism 92640744 Continued poor energy, slight improvemen t when dose first increased to 125 from 112 mcg. Recheck TSH and follow up based on result. [id number] Faith Pulido, RDN, LDN, [facility] Nutrition -[address] [place] [address] 11/24/2014 10:01:04 01/13/2015 03:45:14 Obesity 461627708 [id number] Ria Chua PA-C , [facility] [place] [address] 12/17/2014 09:37:53 12/17/2014 10:26:14 Adult health examination 825949785 see Risk Assessment and Lifestyle Change Counseling section above Counseling [id number] Obesity 270863372 Doing well with food choices and portion control, continue to increase intensity of cardiovasc ular exercise. Follow with nutritioni st as planned. Hypothyroidism 09902495 Improvemen t in energy level. Stable and good TSH at 1.66. Recheck TSH and follow up 6 months. Migraine 90032457 Chroni c problem, triggered by hormonal changes. Continue good hydration, NSAID use at first onset. Increase Vit B rich food week prior to menses. Follow up as needed. Goiter [id number] 11/16/13 , globally enlarged, no discreet nodule. No additional suggested interventi on. [id number] Mandi Venegas PA-C , [facility] [place] [address] 08/05/2015 12:45:19 08/05/2015 13:25:43 Fatigue 59547023 R53.83 Abnormal voice 14933982 R49.9 [id number] Pita Morales D.O. , [facility] [place] [address] 08/12/2015 12:40:41 08/12/2015 13:10:21 Fatigue 26325264 R53.83 we will continue to monitor follow-up immediatel y if any dutton es occur Abnormal voice 44019120 R49.9 ultrasound was negative, physical exam does not show any abnormalit ies. Voice sounds normal to me. Patient has appointmen t with ENT 10/12/2015 follow-up if any changes before then. [id number] Will Bonilla MD , [facility] [address] [place] [address] 12/27/2015 13:17:16 12/27/2015 14:10:48 Adult health examination 950711555 Z00.00 see Risk Assessment and Lifestyle Change Counseling section above Counseling 830123392 Z71 .9 Screening for malignant neoplasm of cervix 059172137 Z12.4 Goiter 5036647 E04.9 she has upcoming appt for a CT scan by ENT Hypothyroidism 55645606 E03.9 stable at this time, remain on current meds Morbid obesity 653020765 E66.01 will address as relationsh ip builds Fatigue 06900070 R53.83 care home issue, some months are good, some aren't, recent CBC and TSH, B12 normal [id number] Kelly Ferro NP-C , [facility] [address] [place] [address] 01/20/2016 16:03:15 01/20/2016 16:31:50 Daytime somnolence 4820481402 00 R40.0 Goiter 0942399 E04.9 recent scan resultedin simple goiter, she is to have a swallow evaluation to evaluate how tight her swallow is at this time Hypothyroidism 87600889 E03.9 stable at this time, remain on current meds [id number] Brayden Philippe MD , [facility] [address] [place] [address] 03/28/2016 09:37:36 03/28/2016 10:40:58 Active or passive immunization 601182165 Z23 Dysmenorrhea 934277927 N 94.6 Patient describes dysmenorrh ea that is likely to be secondary. Differenti al includes endometrio sis, fibroids, ovarian cysts, intrauteri ne or pelvic adhesions. On quick review, it does appear that there are reports of persistent pelvic pain in the setting of Essure placement. This has been chronic, going on for months to years since the Essure placement in 2012. Her gynecologi st recently retired. I recommende d referral to rand tacker as this has been a long standing issue that it seems has already been worked up extensivel y and may need evaluation with hysterosco py vs laproscopy . [id number] Laura Kirby MD , [facility] [address] [place] [address] 04/28/2016 10:45:38 04/28/2016 11:54:24 Uvulitis 243962891 K12.2 Common cold 67715608 J00 Acute pharyngitis 380285 003 J02.9 [id number] Andrew Carrasco MD , [facility] [address] [facility] [place] [address] 06/06/2016 07:38:19 06/06/2016 08:32:15 Morbid obesity 337911636 E66.01 Discussed benefits of weight loss on her diagnosis. Obstructiv e sleep apnea syndrome 12099301 G47.33 Valdez is concerned about the recent diagnosis of severe sleep apnea on home sleep study that was recently done. AHI was 39. She feels that as she was sick at the time, it may not be accurate. 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 She states that her only notices her snoring when she sicks, and denies excessive day time sleepiness . She states fatigue has improved with replacemen t of her vitamin D. I discussed with patient that given the results of her sleep apnea study, it would be difficult for me to write a letter to [employer], saying that she does not have this diagnosis. I encouraged her to try out the CPAP machine as for some patients it can make a big difference in their quality of life. 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 [id number] Andrew Carrasco MD , [facility] [address] [place] [address] 07/27/2016 12:44:29 07/27/2016 13:15:05 Obstructive sleep apnea syndrome 10384040 G47.33 Valdez is concerned about the recent diagnosis of severe sleep apnea on home sleep study that was recently done. AHI was 39. She feels that as she was sick at the time, it may not be accurate. 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 She states that her only notices her snoring when she sicks, and denies excessive day time sleepiness . She states fatigue has improved with replacemen t of her vitamin D. Pt has decided to reevaluate d for sleep apnea at sleep lab in [facility]. Test is in early August. 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 [id number] BRE Valdez , [facility] [address] [place] [address] 09/19/2016 16:44:34 09/20/2016 07:40:52 Acute low back pain 034227684 M54.5 Likely muscular in nature. Palpable spasms in right low back. -Plenty of rest-Alter yeny ice and heat to sore areas 15-20 minutes at a time every hour.-Use ibuprofen as needed to help decrease inflammati on-Use the flexeril as needed to help relax the muscles. This medication may make you drowsy. You should not drink alcohol or drive while taking this medication until you know how it will affect you.-Avoid ibuprofen for 8 hours after receiving the toradol injection here.-Foll ow up early next week if no better. Low back pain 941593089 M54.5 [id number] Brayden Philippe MD , [facility] [address] [place] [address] 12/28/2016 09:49:38 12/28/2016 10:56:13 Adult health examination 457405633 Z00.00 see Risk Assessment and Lifestyle Change Counseling section above Counseling 233193092 Z71 .9 Obstructiv e sleep apnea syndrome 18185129 G47.33 Diagnosis of severe sleep apnea on home sleep study that was done this past year. AHI was 39. Pt did not feel this was accurate and had a second study done in [facility]. Results are pending. No sx of excessive daytime sleepiness . Menorrhagia 056950162 N9 2.0 Episode of a very heavy period. Seen in the ER in [place] but doesn't sound like any conclusion from that. Has f/u scheduled with her rand tacker. Hypothyroidism 13676521 E03.9 Pt just had labs done and TSH should be pending. Compliant with levothyrox ine. [id number] MD VISH Girard, [facility] [address] [place] [address] 07/24/2017 12:45:32 07/24/2017 13:22:34 Active or passive immunization 254628386 Z23 Left lower quadrant pain 666330377 R10.32 ? diverticul itis vs renal stone (urine shows no blood) vs constipati on vs ovarian pathology (less likely as associated with food).-alysa l check labs, if elevated wbc, would treat for presumed diverticul itis-push fluids, stick with liquid diet for the next few days-if fever, vomiting, blood or black in stools, severe pain, go to the ER.-f/u in 1 week [id number] Brayden Philippe MD , [facility] [address] [place] [address] 07/31/2017 12:57:28 07/31/2017 14:58:43 Morbid obesity 998616603 E66.01 work on healthy weight loss. Left lower quadrant pain 727266259 R10.32 ? diverticul itis vs renal stone (urine shows no blood) vs constipati on vs ovarian pathology (less likely as associated with food). More likely GI related as occurs after eating, scott fatty food. Still has TTP on exam. WBC normal. Two first degree family members with colon cancer before age 60.-check CT abd/pelvis -GI referral; needs colonscop. -trial dicyclomin e.-push fluids, stick with liquid diet for the next few days-if fever, vomiting, blood or black in stools, severe pain, go to the ER.-f/u pending change in symptoms/w ork up [id number] BRE Woody, [facility] [address] [place] [address] 12/09/2017 08:49:20 12/09/2017 09:47:10 Hypokalemia 52520338 E87.6 K at 3.0 in the ER; she was given supplement ation in the ERWill recheck today Easy bruising 862770022 R58 Will check CBC Pneumonia 210011123 J18. 9 ResolvingC ompleted Levaquin on 12/07/2017N otify clinic if symptoms return Lesion of liver 58138363 0 K76.[address] CT scanPt plans to f/u with Dr Cortez, GI, as she is scheduled to have colonoscop y with him on 12/17/2017 [id number] Brayden Philippe MD , [facility] [address] [place] [address] 01/31/2018 09:05:44 01/31/2018 10:06:08 Adult health examination 555330046 Z00.00 see Risk Assessment and Lifestyle Change Counseling section above Counseling 300694993 Z71 .9 had hysterecto my. Depression screening 171 403208 Z13.89 depression screening tool administer ed, entered into emr, scored and discussed, time greater than 7.5 minutes Hypothyroidism 76002973 E03.9 Pt just had labs done and TSH should be pending. Compliant with levothyrox ine. Obstructiv e sleep apnea syndrome 33903160 G47.33 Diagnosis of severe sleep apnea on home sleep study that was done this past year. AHI was 39. Pt did not feel this was accurate and had a second study done in [facility]. Results were negative. No sx of excessive daytime sleepiness . Morbid obesity 811881046 E66.01 work on healthy weight loss. try to get 30 mins of exercise 3 times a week. [id number] Andrew Carrasco MD , [facility] [address] [place] [address] 07/23/2018 16:19:28 07/23/2018 16:56:09 Herpes zoster 3628910 B02.9 consistent with shingles. significan t pain not managed by tylenol and ibuprofen- start valtrex-tr amadol for pain-f/u if worsening, new concerns Discussed indication s for new opiod presciptio n, risks and benefits of medication , common side effects and how to manage, and reasons to notify prescriber of adverse effects or discontinu ation. Do not take with alcohol, other sedating medication s or recreation al drugs, do not operate machinery or drive while taking. Bowel regimen reviewed. Recommend yu softener like doccusate (colace) 100 mg twice a day. May add a powdered laxative like Miralax or glycolax 1 capful a day mixed with coffee, tea, or juice as needed. These medication s are available over the counter. [id number] Andrew Carrasco MD , [facility] OFF[address] [facility] [place] [address] 02/06/2019 10:16:45 02/06/2019 11:52:27 Adult health examination 514478283 Z00.00 see Risk Assessment and Lifestyle Change Counseling section above Counseling 666591074 Z71 .9 had hysterecto my.-discus sed bilat posterior hip pain; recommend PT; she would prefer to monitor for now. Depression screening 171 485082 Z13.89 depression screening tool administer ed, entered into emr, scored and discussed, time greater than 7.5 minutes Morbid obesity 747665327 E66.01 work on healthy weight loss. try to get 30 mins of exercise 3 times a week. Hypothyroidism 15402407 E03.9 F/u TSH. Compliant with levothyrox ine. Has a goiter Oropharyng eal dysphagia 95359179 R13.12 describes coughing/c hoking with liquids. also voice changes, which are chronic. was evaluated by ent; decreased mobility in L vocal cord. Neck Ct was normal.-re commend MBS; consider speech therapy. [id number] Andrew Carrasco MD , [facility] [address] [facility] [place] [address] 02/09/2020 10:13:25 02/09/2020 11:04:26 Adult health examination 713831476 Z00.00 see Risk Assessment and Lifestyle Change Counseling section above-hx of total hystrectom y (no longer needs paps)-colo noscopy 2018 and due in 5 years Counseling 876997478 Z71 .9 Depression screening 171 519186 Z13.89 depression screening tool administer ed, entered into emr, scored and discussed, time greater than 7.5 minutes Hypothyroidism 20442428 E03.9 TSH not within range. Compliant with levothyrox ine. Has a goiterincr ease levothyrox ine and recheck TSH in 6 weeks Screening for alcohol abuse 139167108 Z13.39 Obstructiv e sleep apnea syndrome 16786347 G47.33 Diagnosis of severe sleep apnea on home sleep study. AHI was 39. Pt did not feel this was accurate and had a second study done in [facility]. Results were negative. No sx of excessive daytime sleepiness . Screening for disorder 491793479 Z11.59 Morbid obesity 670131351 E66.01 work on healthy weight loss. try to get 30 mins of exercise 3 times a week.-alice rizzo repeat nutrition consult-re cent 10 lb weight gain possibly related to uncontroll ed hypothyroi d Headache 64110858 R51.9 frontal; x a couple months; associated with eating, mild, frequent. throbbing, some associated photophobi a/nausea. ? migraine. didn't find ibuprofen helpful. ? related to uncontroll ed hypothyroi d-increase thyroid med-f/u in 6 weeks or sooner if worsening or new concerns. [id number] Andrew Carrasco MD , [facility] [address] [place] [address] 03/18/2020 12:51:42 03/18/2020 15:30:54 Hypothyroidism 64993644 E03.9 TSH now improved with increased dose. Energy has improved. Compliant with levothyrox ine. Has a goiter=con tinue current dose and recheck TSH prior to yearly wellness Obstructiv e sleep apnea syndrome 43294303 G47.33 Diagnosis of severe sleep apnea on home sleep study. AHI was 39. Pt did not feel this was accurate and had a second study done in [facility]. Results were negative. No sx of excessive daytime sleepiness . Morbid obesity 058943900 E66.01 work on healthy weight loss. try to get 30 mins of exercise 3 times a week.-alice rizzo repeat nutrition consult-re cent 10 lb weight gain possibly related to uncontroll ed hypothyroi d Headache 15201071 R51.9 frontal; x a couple months; mild; not worsening; maybe improving some. possibly ibuprofen helping. ? migraine-d iscussed use of nsaid; takin ibuprofen 600 mg at first sign of headache; use no more than twice a week-heada ch diary-f/u if worsening/ new symptoms-? screen related [id number] Laura Kirby MD FP, [facility] [address] [place] [address] 09/07/2020 13:25:59 09/07/2020 19:34:45 Injury of finger 22805979 S69.91XA R second finger Q of crush injury due to delayed onset of erythema, paresthesi a and pain. Recommend to be seen at ED which she agrees. ED was called on her behalf. Paresthesia of finger 76 0133663 R20.2 R second finger, intact circulatio n with loss of bony landmarks and sensation. [id number] MD VISH Renteria, [facility] OFF[address] [facility] [place] [address] 02/22/2021 09:46:16 02/22/2021 17:16:57 Adult health examination 782937237 Z00.00 see Risk Assessment and Lifestyle Change Counseling section above-hx of total hystrectom y (no longer needs paps) - follows with rand tacker-mammo- will discuss with her rand tacker-colono scopy 2018 and due in 5 years Counseling 891135494 Z71 .9 including cardiovasc ular risk reduction counseling Depression screening 171 060208 Z13.31 depression screening tool administer ed, entered into emr, scored and discussed, time greater than 7.5 minutes Screening for alcohol abuse 414568728 Z13.39 Hypothyroidism 94623870 E03.9 TSH not within range. Compliant with levothyrox ine. Has a goiterincr ease levothyrox ine and recheck TSH in 6 weeks Obstructiv e sleep apnea syndrome 42221027 G47.33 Diagnosis of severe sleep apnea on home sleep study. AHI was 39. Pt did not feel this was accurate and had a second study done in [facility]. Results were negative. No sx of excessive daytime sleepiness . Morbid obesity 633804278 E66.01 work on healthy weight loss. try to get 30 mins of exercise 3 times a week.-decl matthias repeat nutrition consult-re cent 10 lb weight gain possibly related to uncontroll ed hypothyroi d [id number] MD VISH Daley, [facility] OFFICE [address] [facility] [place] [address] 02/23/2022 10:55:35 02/23/2022 11:50:35 Adult health examination 551998247 Z00.00 41 year old here for wellness exam She will be getting gastric sleeve on and when she recovers she will reach out to provider regarding slow decrease of levothyrox ine given low TSH. Discussed alternatin g 137/125 mcg for 4-6 weeks and then daily 125mcg and will FU labs a few months later as long as she is clinically stable. Counseling 429813715 Z71 .9 including cardiovasc ular risk reduction counseling Depression screening 171 Z13.31 depression screening tool administer ed, entered into emr, scored and discussed, time greater than 7.5 minutes Screening for alcohol abuse 231976083 Z13.39 [id number] Brayden Philippe MD , [facility] [address] [place] [address] 07/24/2022 15:47:39 07/24/2022 17:26:11 Left flank pain 673807313 R10.9 New problem w/ uncertain prognosis. [id number] Elijah Yu Jr. MD , [facility] [address] [place] [address] 10/03/2022 15:56:06 10/03/2022 16:30:03 Right lower quadrant pain 181186910 R10.31 suspect acute gastroente ritis. likely viral. resolving. No warning signs/feat ures for appendicit is.s/p hysterecto my. ovaries remain. ovarian cyst is less likely given RLQ pain with associated viral and Gi symptoms.v /s grossly hemodynami alhaji stable and physical exam unremarkab le except for mild TTP of RLQ. no rebound or gaurding.c ovid-19 test negative. continue symptomati c care. rest, good oral hydration, and brat diet.consi mago abd US and lab work if symptoms pass beyond 1 wkf/u sooner as needed.ER/ 911 precaution s provided.a ll questions answered [id number] Andrew Carrasco MD , [facility] [address] [place] [address] 02/26/2023 10:01:10 02/26/2023 10:52:44 Adult health examination 510636492 Z00.00 see Risk Assessment and Lifestyle Change Counseling section above-hx of total hystrectom y (no longer needs paps) - follows with rand tacker-colono scopy 2018 and due in 5 years Depression screening 171 Z13.31 depression screening tool administer ed Screening for alcohol abuse 855998400 Z13.39 Alcohol use screening tool administer ed Hypothyroidism 92961224 E03.9 TSH wnl; continue current dose Counseling 180781921 Z71 .9 g Screening mammography 24 761995 Z12.31 recommend mammo Screening for malignant neoplasm of colon 736944159 Z12.11 due for colonoscop y [id number] Andrew Carrasco MD FP, [facility], OFF[address] [place] [address] 03/03/2024 09:56:47 03/03/2024 10:47:06 Adult health examination 239221366 Z00.00 see Risk Assessment and Lifestyle Change Counseling section above-hx of total hystrectom y (no longer needs paps) - follows with rand tacker-colono scopy 2017 and due in 5 years - was postponed- [place] [facility] [place] screening 171 242665 Z13.31 depression screening tool administer ed Screening for alcohol abuse 429509255 Z13.39 Alcohol use screening tool administer ed Hypothyroidism 06701119 E03.9 TSH slightly below normal range, but patient is asymptomat ic. No symptoms of hyperthyro idism.-Con tinue current dose of thyroid medication .-Refill prescripti on as needed. Counseling 419082860 Z71 .9 Screening mammography 24 944981 Z12.31 Last mammogram in May 2023. Discussed frequency of mammograms given no concerning family history of breast cancer.-Ne xt mammogram in May 2025. Screening for malignant neoplasm of colon 644103763 Z12.11 Colonoscop y scheduled for July 07. Discussed additional screening with stool test due to family history and delay in colonoscop y.-Perform stool test next week. History of bariatric surgical procedure 818044721 Z98.84 continues to follow with weight management Health Concerns Section Related Observation LastModified by Organization Detai ls LastModified Time None Recorded Concern Status LastModified by Organization Details LastModified Time None Recorded Advance Directives Directive N: discussed with pt. gave f orm Payers Encounter Date Sequence Insurance Name Policy Number Policy Dsouza Covered Member ID Dsouza Member ID Guarantor Name 02/23/2022 1 [place] PRIOR TO 2022 - [facility] (MEDICAID) Valdez [place] [id number] Valdez [place] 07/24/2022 1 [place] 2022 - [employer] (MEDICA[place]) Valdez Vargas [id number] Valdez V Sam 10/03/2022 2 [employer] - DOS ON OR AFTER 2022 - [employer] (MEDICAID REPLACEMENT - HMO) Valdez Vargas [id number] Valdez V Sam 02/26/2023 2 [employer] - DOS ON OR AFTER 2022 - [employer] (MEDICAID REPLACEMENT - HMO) Valdez Vargas [id number] Valdez Vargas 03/03/2024 1 [employer] (HMO) Valdez Vargas [id number] Valdez Vargas Notes Date Note Type Note Provider Name and Address Organization Details Recorded Time 2 text/html Physical Exam/FemaleReported bypatient.PHAPatient is here for a Wellness Visit. She describes her health status as good. Patient's health is better than last year.Risk Assessment and Lifestyle Change Counseling 18-50Reported bypatient.Coronary Artery Disease Risk Assesment:Family History of Coronary Artery Disease(mother's side); No personal history of diabetes; No history of peripheral vascular disease, AAA, or carotid disease; No personal history of coronary artery disease Breast Cancer Risk Assessment:Family history of breast cancer(Great grandmother, materal); No history of breast cancer or dcis; mother's side Lung Cancer Risk Assessment:No asbestos exposure (02/09/2020) Cognitive/Behavioral Risk Assessment:No personal history of mental illness; No family history of mental illness Safety Risk Assessment:No evidence of abuse/neglect Diet:Counseled about eating a diet low in trans and saturated fats and high in fiber, fruits and vegetables Exercise counseling:Discussed the importance of daily physical activity; bike /walking. goes to gym treadmill/ eliptical and lifting weights Safety:Counseled about avoiding excessive and unsafe alcohol intake Family Planning:hysterectomy. 41 year old here for wellness exam.She will be getting the gastric sleeve. Had low normal vitamins as per patient which were checked prior to surgery so she is taking vitamins at this time.Taking her medication for underactive thryoid. TSH low normal. Has spoken to her PMD about decreasing dose and has not yet. No clinical concerns of dose now.ibuprophen for knees occasionally.Stairs and treadmill.On protein shakes for prep for surgery.Got new glasses. Has improved with changes in diet and glasses. No CP, SOB, BM Q Day.Partial Hysterectomy for cervical dysplasia.Retest of polysomnogram was normal.Family well at home. Maryse Espino MD [address] [place], [address], [facility] 02/23/2022 11:34:30 3 text/html --began w/ L flank pain early this morning -- gets up at 4am--no changes in urination--nothing makes it better or worse -- although it's worse when she sits up straight--denies injuries--states pain began L abd and then moved around to back--can't link pain to any specific food / beverage or to any specific activity Lolis Larsen NP [address] [place], [address], [facility] 07/26/2022 23:11:34 3 text/html Pt presents in office for lower right side abd painonset 3 days agovomited x 2 days, now diarrheapoor appetitedescribed as crampingdenies possibility of /prior hysterectomyfeeling gassy, with some reliefNausea/abd with vomiting 3 days ago. And now gas and diarrhea. No dietary changes. No one else is sick. No fevers/chills/or muscle aches. No hiking or drinking from streams. No well water. This has never happened to her before. Appetite is low. She has been drinking fluids. Covid-19 testing negative. Brayden Ortega PA-C [address] [place], [address], [facility] 10/04/2022 07:33:59 3 text/html Physical Exam/FemaleReported bypatient.PHAPatient is here for a Wellness Visit. She describes her health status as fair. Patient's health is the same as last year.Risk Assessment and Lifestyle Change Counseling 18-50Reported bypatient.Coronary Artery Disease Risk Assesment:Family History of Coronary Artery Disease(mother's side); No personal history of diabetes; No history of peripheral vascular disease, AAA, or carotid disease; No personal history of coronary artery disease Breast Cancer Risk Assessment:Family history of breast cancer(Great grandmother, materal); No history of breast cancer or dcis; mother's side Lung Cancer Risk Assessment:No asbestos exposure (02/09/2020) Cognitive/Behavioral Risk Assessment:No personal history of mental illness; No family history of mental illness Safety Risk Assessment:No evidence of abuse/neglect Colon Cancer Risk:Family history of colon polyps or canncer Diet:Counseled about eating a diet low in trans and saturated fats and high in fiber, fruits and vegetables; [place] - still working with them Exercise counseling:Discussed the importance of daily physical activity; bike /walking. goes to gym treadmill/ eliptical and lifting weights walking daily. Safety:Counseled about avoiding excessive and unsafe alcohol intake Family Planning:hysterectomy. Andrew Carrasco MD [address] [place] [address], [phone], [facility] 02/26/2023 10:43:52 4 text/html Physical Exam/FemaleReported bypatient.PHAPatient is here for a Wellness Visit. She describes her health status as fair. Patient's health is the same as last year.Risk Assessment and Lifestyle Change Counseling 18-50Reported bypatient.Coronary Artery Disease Risk Assesment:Family History of Coronary Artery Disease(mother's side); No personal history of diabetes; No history of peripheral vascular disease, AAA, or carotid disease; No personal history of coronary artery disease Breast Cancer Risk Assessment:Family history of breast cancer(Great grandmother, materal); No history of breast cancer or dcis; mother's side Lung Cancer Risk Assessment:Never smoked; No asbestos exposure (02/09/2020) Cognitive/Behavioral Risk Assessment:No personal history of mental illness; No family history of mental illness Safety Risk Assessment:No evidence of abuse/neglect; Do you feel safe in your current relationship?YES Colon Cancer Risk:Family history of colon polyps or canncer Diet:Counseled about eating a diet low in trans and saturated fats and high in fiber, fruits and vegetables; [place] - still working with them Exercise counseling:Discussed the importance of daily physical activity; bike /walking. goes to gym treadmill/ eliptical and lifting weights walking daily. Safety:Counseled about avoiding excessive and unsafe alcohol intake Family Planning:hysterectomy. The patient presents for an annual check-up. They report no major updates or concerns since their last visit a year ago. All recent lab work, including complete blood cell count, thyroid, kidney function, liver tests, blood sugar, and electrolytes, were within normal ranges. The patient denies any new family history of disease. They confirm they have never smoked and are currently in a safe relationship. They are making efforts to eat healthily and engage in regular exercise, including gym workouts and nightly walks. They deny any concerns about alcohol use.The patient has a colonoscopy scheduled for July 07 due to a previous cancellation and subsequent placement on a waiting list. They agree to do a stool test as an additional screening measure, especially considering their family history. 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 They recently refilled their thyroid medication and report no symptoms of hyperthyroidism such as jitteriness, anxiety, palpitations, or diarrhea. The patient has four children, with ages ranging from 11 to 23 years old. Andrew Carrasco MD [address] [place] [address], [phone], [facility] 03/03/2024 10:39:15 OBGyn Episode No OBEpisode recorded.
== END 2024-10-05 11:39 | disposition home or self-care (01) ==
LOC: HO.HBS 11:33
PROVIDERS: PCP Internal Medicine; Visit Provider Physician Assistant Surgical
DX: E66.9 Obesity, unspecified (principal); Z68.32 Body mass index [BMI] 32.0-32.9, adult; Z90.3 Acquired absence of stomach [part of]; Z98.84 Bariatric surgery status
CPT/HCPCS: 98012

== ENCOUNTER → 2024-10-05 11:33 | Outpatient (BNVA) | payer OTHER, SELFPAY | PROVIDERS: PCP Internal Medicine; Visit Provider Physician Assistant Surgical | DX: E66.9 Obesity, unspecified (principal); Z98.84 Bariatric surgery status ==